=== PATIENT | female | born 1990 | race Hispanic/Latino ===

== ENCOUNTER 2017-09-05 06:23 | Inpatient (IN) | payer BC, OTHER ==
[~2017-09-05 06:23] MED LIST: OXYTOCIN/LR 20 UNIT/1,000 ML BAG IV ONE
[2017-09-05] MEDS ORDERED: Ringers Lactate 1,000 ML IV PRN (06:26)
[2017-09-05 06:38] VITALS: BMI 41.0
[2017-09-05] MEDS ORDERED: Ringers Lactate 1,000 ML IV SCH (07:00)
[2017-09-05] MEDS ORDERED: OXYTOCIN/LR 20 UNIT/1,000 ML BAG IV SCH (07:00)
[2017-09-05 07:13] LABS: Urine Appearance CLEAR; Urine Bilirubin NEGATIVE (NEG); Urine Blood NEGATIVE (NEG); Urine Color YELLOW; Urine Glucose NEGATIVE (NEG); Urine Microscopic Reflex NO UMIC; Urine Protein NEGATIVE (NEG); Urine Specific Gravity 1.025 (1.005-1.030)
[2017-09-05 07:13] LABS: RPR Titer ND
[2017-09-05] MEDS ORDERED: BUPIVACAINE 0.25% PF 10 ML VIAL IV PRN (07:13)
[2017-09-05] MEDS ORDERED: FENTANYL CITR 100 MCG/2 ML IV ONE (07:13)
[2017-09-05] MEDS ORDERED: FENTANYL/BUPIVACAINE/NS/PF 200 MCG/100 ML BAG EP PRN (07:13)
[2017-09-05 07:23] LABS: Absolute Lymphocytes (CBC) 1.9 K/uL (0.7-4.9); Absolute Monocytes 0.6 K/uL (0.1-1.3); Absolute Neutrophil 6.9 K/uL (1.8-8.0); Basophils % 0.4 % (0-1.3); Eosinophils % 1.8 % (0-4.4); Hematocrit 31.5 % (36.0-45.0); Lymphocytes % 19.9 % (15.3-44.8); MCH 20.2 pg (27.0-35.0); MCV 66.2 fL (80-100); MPV 8.9 fL (7.6-11.3); Monocytes % 5.8 % (3.3-12.3); RBC Red Blood Cell Count 4.75 M/uL (3.86-4.86)
[2017-09-05 10:08] LABS: Platelet Estimate ADEQ; Urine White Blood Cell Casts OK
[2017-09-05 10:09] LABS: Anisocytosis 1+; Blood Morphology Comment NOTED (NOT SEEN); Hypochromasia 1+; Poikilocytosis 1+
[2017-09-05] MEDS ORDERED: FENTANYL/BUPIVACAINE/NS/PF 200 MCG/100 ML BAG EP ONE (10:18)
[2017-09-05] MEDS ORDERED: LIDOCAINE 1% 20 ML MDV ONE (10:47)
[2017-09-05] MEDS ORDERED: LIDOCAINE 2% MPF 5 ML VIAL ONE (10:48)
[2017-09-05] MEDS ORDERED: LIDOCAINE 2% INJ, 20 mL 0 ML ONE (13:41)
[2017-09-05] MEDS ORDERED: METHYLERGONOVINE 0.2MG/ML AMP IM ONE (13:42)
[2017-09-05] MEDS ORDERED: CARBOPROST TROME 250 MCG/ML IM ONE (13:42)
[2017-09-05] MEDS ORDERED: BISACODYL 10 MG RECTAL SUPP RECT PRN (14:15)
[2017-09-05] MEDS ORDERED: Oxycodone HCl/Acetaminophen 1 TAB TAB PO PRN ×2 (14:15)
[2017-09-05] MEDS ORDERED: ACETAMINOPHEN 500 MG TAB PO PRN (14:15)
[2017-09-05] MEDS ORDERED: DOCUSATE NA/SENNA CONC 1 TAB PO PRN (14:15)
[2017-09-05] MEDS ORDERED: METHYLERGONOVINE 0.2 MG TAB PO PRN (14:15)
--- NOTE | 2017-09-05 15:04 | P.OP ---
Date of Service: 09/05/17 Findings and Operative Technique Patient delivered a viable male in cephalic presentation on 09/05/17 at 1404. was delivered with nuchal cord x1. This was manually reduced. Perineum was intact. Upon delivery of the infant the nose and mouth were suctioned with a suction bulb. Cord was clamped and cut. was placed on mother's abdomen for skin to skin bonding. Cord blood was obtained. Attention was then turned to the placenta which was delivered with gentle traction. Fundal massage was performed. Placenta intact. EBL was found to be 200cc. APGARS were 9/9. Weight was found to be 6lb 15 oz. First stage of labor was 4 hours 19 min. Second stage was 5 min. Both mom and baby are doing well.
[2017-09-05] MEDS: IBUPROFEN 200 MG TAB PO PRN (18:26)
[2017-09-05 23:01] LABS: RPR (Rapid Plasma Reagin) NON-REACT (NON-REACT)
--- NOTE | 2017-09-06 01:08 | HP ---
Date of Admission: 09/05/2017 History Of Present Illness: Radha is a 27-year-old, 7 xpov-0-0-3-3 who presents at 37 week s and 1 day gestation for induction of labor due to uteroplacental insufficiency and borderline oligo hydramnios. The patient has been seen by a Maternal Medicine specialist who recommended delive ry by 37 weeks. Amniotic fluid index was 7.4 cm, which was significantly decreased from prior 14 cm. She also had slightly elevated Doppler monitoring and a prior history of preeclampsia with dany rderline blood pressures and slight proteinuria; therefore, it was recommended that she be delivered by 37 weeks gestation. The patient reports good movements, but she states that they have been decreasing in the last week. She denies vaginal bleeding, reports irregular contractions. Denies le akage of fluid. record is present for review on the chart. This , she had an elev ated 1-hour glucose screen, 3-hour was negative. She has a prior history of 3 vaginal births. Past Medical History: Obesity and bipolar depression. Past Surgical History: D and C, eye surgery, and back surgery. Family History: Significant for insulin-dependent diabetes. Social History: Denies tobacco, alcohol, or drug use. She is with the father of the baby, unmarried . Physical Examination: Vital Signs: On admission, blood pressure was 135/58, pulse of 88, respirations 18, and temperature 97.4. General: The patient resting comfortably in bed, in no acute distress. Head and Neck: Normocephalic, atraumatic. Heart: Regular rate and rhythm. Respiratory: Symmetric nonlabored breathing. Abdomen: Gravid. Extremities: Bilateral lower extremities +1 edema bilaterally. Vaginal Exam: 2-3 cm dilated, 50% effaced, -2 station. Vertex presentation. Rupture of membranes p erformed, clear fluid noted. Laboratory On Admission: White blood cell count 9.6, hemoglobin 9.6, hematocrit 31.5, and platelet c ount 283. Protein negative. Impression: Radha is a 27-year-old, 7, htzc-6-8-3-3 who presents at 37 weeks and 1 day ges tation with uteroplacental insufficiency and borderline oligohydramnios, recommended to be delivered by 37 weeks by Maternal Medicine specialist. Rupture of membranes has been performed. She is GBS negative. We anticipate a vaginal . The patient will get an epidural at her request. Cont inuous maternal monitoring will be performed and Pitocin is being given for labor augmentation. HECTOR Voice ID: [id number]
[2017-09-06] MEDS: IBUPROFEN 200 MG TAB PO PRN ×2 (02:35→12:23)
[2017-09-06 05:19] LABS: Absolute Lymphocytes (CBC) 2.1 K/uL (0.7-4.9); Absolute Monocytes 0.8 K/uL (0.1-1.3); Absolute Neutrophil 7.6 K/uL (1.8-8.0); Basophils % 0.5 % (0-1.3); Eosinophils % 1.8 % (0-4.4); Hematocrit 24.1 % (36.0-45.0); Lymphocytes % 19.7 % (15.3-44.8); MCH 20.6 pg (27.0-35.0); MCV 65.4 fL (80-100); MPV 9.1 fL (7.6-11.3); Monocytes % 7.8 % (3.3-12.3); RBC Red Blood Cell Count 3.69 M/uL (3.86-4.86)
[2017-09-06] MEDS ORDERED: IBUPROFEN 200 MG TAB PO ONE (12:19)
[2017-09-06 12:28] VITALS: BP 135/65; TEMP 98.1
[2017-09-07 02:58] LABS: HBsAG Nonreactive (Nonreactive)
--- NOTE | 2017-09-12 22:22 | P.DS ---
Admission Date: 09/05/17 Discharge Date: 09/06/17 Disposition: ROUTINE DISCHARGE Discharge Condition: GOOD Brief History of Present Illness: Patient admitted for induction of labor due to uteroplacental insufficiency. Hospital Course: Patient did well during induction process and delivered vaginally. She is bonding well with the baby. Her pain is well controlled. Bleeding is normal. No issues voiding or ambulating. Vital Signs/Physical Exam: Temp Pulse Resp BP Pulse Ox 98.1 F 80 16 135/65 09/06/17 12:27 09/06/17 12:27 09/06/17 12:27 09/06/17 12:27 General: Alert, In no apparent distress HEENT: Atraumatic Neck: Supple Respiratory: Normal air movement Cardiovascular: No edema, Normal pulses Gastrointestinal: Soft and benign (fundus firm palpable beneath umbilicus) Musculoskeletal: No clubbing, No swelling Integumentary: No rashes Neurological: Normal gait, Normal speech External genitalia: No edema, No lesions Laboratory Data at Discharge: WBC 10.8 K/uL (4.3-10.9) 09/06/17 04:41 Hgb 7.6 g/dL (12.0-15.0) L* 09/06/17 04:41 Hct 24.1 % (36.0-45.0) L D 09/06/17 04:41 Plt Count 213 K/uL (152-406) D 09/06/17 04:41 Home Medications: Vit No.78/Iron/FA [Prenatabs FA Tablet] 1 tab PO DAILY 06/29/17 Followup: Juan David Hollingsworth DO [ACTIVE - CAN ADMIT] - (Follow up care with Dr. Hollingsworth in 6 weeks.)
== END 2017-09-06 16:32 | disposition home or self-care (01) | DRG 775 ==
LOC: 2ND-WC 06:23
PROVIDERS: ADMIT Student in an Organized Health Care Education/Training Program; ATTEND Student in an Organized Health Care Education/Training Program
PROC: 10E0XZZ Delivery of Products of Conception, External Approach (ICD-10-PCS; principal; 2017-09-05)
PROC: 10907ZC Drainage of Amniotic Fluid, Therapeutic from Products of Conception, Via Natural or Artificial Opening (ICD-10-PCS; 2017-09-05)
PROC: 3E033VJ Introduction of Other Hormone into Peripheral Vein, Percutaneous Approach (ICD-10-PCS; 2017-09-05)
DX: O41.03X0 Oligohydramnios, third trimester, not applicable or unspecified (principal); O36.5130 Maternal care for known or suspected placental insufficiency, third trimester, not applicable or unspecified; O99.214 Obesity complicating childbirth; O69.81X0 Labor and delivery complicated by cord around neck, without compression, not applicable or unspecified; Z3A.37 37 weeks gestation of pregnancy; Z37.0 Single live birth
CPT/HCPCS: 36415; 81003; 85025; 86592; 86901; 87340; 88305; 88307; J2210; J2590; J3010

== ENCOUNTER 2017-10-22 09:12 | Day surgery (SDC) | payer OTHER ==
[2017-10-22 10:12] LABS: Specific Gravity 1.025 (1.005-1.030)
[2017-10-22] MEDS ORDERED: Ringers Lactate 1,000 ML IV ONE (10:22)
[2017-10-22] MEDS ORDERED: SILVER NITRATE 1 APPL TOP ONE (10:28)
[2017-10-22] MEDS ORDERED: PROPOFOL 200 MG/20 ML VIAL IV ONE (10:31)
[2017-10-22] MEDS ORDERED: FENTANYL CITR 100 MCG/2 ML ONE ×2 (10:32→11:30)
[2017-10-22] MEDS ORDERED: MIDAZOLAM HCL 2 MG/2 ML INJ ONE (10:32)
[2017-10-22] MEDS ORDERED: GLYCOPYRROLATE 0.2 MG/ML SYR ONE (10:35)
[2017-10-22] MEDS ORDERED: ROCURONIUM 50 MG/5 ML VIAL IV ONE ×2 (10:35→10:37)
[2017-10-22] MEDS ORDERED: NEOSTIGMINE 1 MG/ML -5 ML SYRINGE ONE (10:36)
[2017-10-22] MEDS ORDERED: ONDANSETRON 4 MG (ODT) TAB PO PRN (11:44)
[2017-10-22] MEDS ORDERED: KETOROLAC 30 MG/ML INJ IV PRN (11:44)
[2017-10-22] MEDS ORDERED: IBUPROFEN 400 MG TAB PO PRN (11:44)
--- NOTE | 2017-10-22 11:44 | P.OP ---
Distribution Engineering Technologist: NONE,NONE Preoperative diagnosis: Multiparity desires permanent sterilization Postoperative diagnosis: same Primary procedure: Laparoscopic bilateral tubal ligation Secondary procedure: none Other procedure(s): none Anesthesia: General Estimated blood loss: none Specimen: none Operative Technique: After administration of general anesthesia, the patient was placed in the dorsal lithotomy position, and prepped and draped in the usual sterile fashion. The speculum was placed in the vagina, the cervix was grasped with the tenaculum , and a uterine manipulator inserted. This area was then draped off the remainder of the operative field. A 5-mm incision was made umbilically. A Veress needle was inserted to confirm an opening pressure of 4 mmHg. Approximately 4 liters of CO2 gas was insufflated into the abdominal cavity. The Veress needle was removed, and a long 5-mm port placed. Position was confirmed using a laparoscope. A second port was placed under direct visualization, 3 fingerbreadths suprapubically, 5 mm in diameter. This was done under direct visualization. The pelvic cavity was examined with the findings as noted above. The Klepinger was used to ligate segments of the fallopian tube bilaterally. Good segments were noted to be ligated. The accessory port was removed. The abdomen was deflated. The laparoscope and sheath was removed. The skin edges were approximated with 4-0 Monocryl suture in subcuticular fashion. Dermabond was applied. The instruments were removed from the vagina. The patient was returned to the supine position, recalled from anesthesia, and transferred to the recovery room in satisfactory condition. Sponge and needle counts correct at the conclusion of the case. Estimated blood loss was minimal. Complications: None Transferred to: Recovery Room Condition: Good
[2017-10-22] MEDS ORDERED: MEPERIDINE HCL 25 MG/0.5 ML ONE ×2 (11:57→12:04)
[2017-10-22] MEDS ORDERED: MEPERIDINE HCL 50 MG/ML AMP ONE (12:21)
[2017-10-22 12:51] VITALS: BP 128/72; TEMP 97; O2SAT 98
[2017-10-22] MEDS ORDERED: IBUPROFEN 400 MG TAB ONE (13:10)
== END 2017-10-22 14:10 | disposition home or self-care (01) ==
LOC: OR 09:12
PROVIDERS: ATTEND Student in an Organized Health Care Education/Training Program
PROC: 0U574ZZ Destruction of Bilateral Fallopian Tubes, Percutaneous Endoscopic Approach (ICD-10-PCS; principal; 2017-10-22 10:30)
DX: Z30.2 Encounter for sterilization (principal); Z64.1 Problems related to multiparity; Z82.49 Family history of ischemic heart disease and other diseases of the circulatory system; Z83.3 Family history of diabetes mellitus
CPT/HCPCS: 81025; J2175; J2250; J2710; J3010

== ENCOUNTER 2024-04-28 18:17 | Emergency (ER) | payer OTHER, SELFPAY ==
--- OUTSIDE RECORDS SUMMARY | 2024-04-28 18:20 | XMS REPORT | Continuity of Care Document ---
Author Name Unknown Address [address] [place] [address] [facility] thconnect Address [address] [place] [address] Care Team Providers Care Ventilation Mechanic Name Role Phone Pcp, Patient Does Not Have A Primary Care Physic edward JAYCEE CAMP Attending Clinician Unavailable JAYCEE CAMP Attending Clinician Unavailable Jaycee Camp MD Attending Clinician [phone] CORTES OROZCO Attending Clinician Unavailable TERRY NASH Attending Clinician Unavailable ADAN SIMMONS Attending Clinician Unavailable Adan Simmons DO Attending Clinician [phone] Doctor Unassigned, [place] Attending Clinician U THOM Green Attending Clinician Unavailable ADAN SIMMONS Admitting Clinician Unavailable Payers Payer Name Policy Type Policy Number Effective Date Expirati on Date Source [facility] [id number] 2022 00:00:00 MEDICAID PENDING PENDING 2019 00:00:00 Problems Condition Name Condition Details Condition Category Status Onset Date Resolution Date Last Treatment Date Treating Clinician Comments Source Obesity (BMI 30-39.9) Obesity (BMI 30-39.9) Disease Active 01-03 00:00: 00 [facility] Allergies, Adverse Reactions, Alerts Allergy Name Allergy Type Status Severity Reaction(s) Onset Date Inactive Date Treating Clinician Comments Source NO KNOWN ALLERGIE S Drug Class Active [facility] Social History Social Habit Start Date Stop Date Quantity Comments Source [facility] of [facility] function 2021-09-20 00:00:00 2021-09-20 00:00:00 [facility] Exposure to SARS-CoV-2 (event) 2021-09-09 00:00:00 2021-09-19 09:10:00 Not sure [facility] Tobacco use and exposure 2020-04-26 00:00:00 2020-04-26 00:00:00 Smokeless tobacco non-user [facility] Sex assigned at 1990 00:00:00 1990 00:00:00 [facility] Smoking Status Start Date Stop Date Source Never smoked tobacco [facility] Medications Ordered Medication Name Filled Medication Name Start Date Stop Date Current Medication? Ordering Clinician Indication Dosage Frequency Signature (SIG) Comments Components Source HYDROcodone -acetaminop hen 5-325 mg tablet 2023-05 00:00: 00 05-05 05:59 :00 Yes [id number] 1{tbl} Take 1-2 tablets by mouth every 6 (six) hours as needed for Pain (scale 4-6) for up to 7 days. Indication s: acute pain [facility] naproxen sodium (ANAPROX DS) 550 mg tablet 09-19 00:00: 00 Yes [id number] 550mg Take 1 tablet by mouth 2 (two) times daily with meals. [facility] methylPREDN ISolone (MEDROL, BOLIVAR,) 4 mg tablets 09-19 00:00: 00 Yes [id number] Take by mouth SEE-INSTRU CTIONS. follow package directions [facility] methocarbam oL 500 mg tablet 09-19 00:00: 00 09-25 04:59 :00 No [id number] 500mg Take 1 tablet by mouth 3 (three) times daily for 5 days. [facility] NAPROXEN ORAL 2019-05 14:19: 18 Yes Take by mouth. [facility] losartan 100 mg tablet 2019-05 00:00: 00 Yes 100mg Take 1 tablet by mouth daily. [facility] metoprolol succinate XL 25 mg 24 hr tablet 2019-05 00:00: 00 Yes [id number] 25mg Take 1 tablet by mouth daily. [facility] phenazopyri dine 200 mg tablet 9-16 00:00: 00 Yes [id number] 200mg Take 1 tablet by mouth 3 (three) times daily. [facility] traMADOL (ULTRAM) 50 mg tablet 11-17 00:00: 00 Yes 50mg Take 1 tablet by mouth every 6 (six) hours as needed for Pain (scale 4-6). [facility] cyclobenzap rine (FLEXERIL) 5 mg tablet 11-23 00:00: 00 Yes 5mg Take 1 tablet by mouth 3 (three) times daily. [facility] famotidine (PEPCID) 40 mg tablet 10-15 00:00: 00 Yes 40mg Take 1 tablet by mouth daily. [facility] Vital Signs Vital Name Observation Time Observation Value Comments S ource Systolic blood pressure 2024-04-28 01:45:00 158 mm[Hg] [facility] Diastolic blood pressure 2024-04-28 01:45:00 107 mm[Hg] [facility] Heart rate 2024-04-28 01:45:00 94 /min [facility] Respiratory rate 2024-04-28 01:45:00 16 /min [facility] Oxygen saturation in Arterial blood by Pulse oximetry 2024-04-28 01:45:00 96 /min [facility] Body temperature 2024-04-28 01:24:00 37.22 [place] [facility] Body height 2024-04-28 01:24:00 165.1 cm [facility] Body weight 2024-04-28 01:24:00 87.862 kg [facility] BMI 2024-04-28 01:24:00 32.23 kg/m2 [facility] Systolic blood pressure 2021-09-19 15:00:00 138 mm[Hg] [facility] Diastolic blood pressure 2021-09-19 15:00:00 90 mm[Hg] [facility] Heart rate 2021-09-19 15:00:00 64 /min [facility] Respiratory rate 2021-09-19 15:00:00 18 /min [facility] Oxygen saturation in Arterial blood by Pulse oximetry 2021-09-19 15:00:00 97 /min [facility] Body temperature 2021-09-19 14:12:00 36.5 [place] [facility] Body height 2021-09-19 14:12:00 165.1 cm [facility] Body weight 2021-09-19 14:12:00 95.255 kg [facility] BMI 2021-09-19 14:12:00 34.95 kg/m2 [facility] Procedures Procedure Date / Time Performed Performing Clinicia n Source XR CHEST 1 VW 2021-09-19 14:31:02 Singer Adan [facility] MAGNESIUM 2021-09-19 14:20:00 Singer [facility] TROPONIN I 2021-09-19 14:20:00 Singer [facility] COMP. METABOLIC PANEL (14990) 2021-09-19 14:20:00 Singer Adan [facility] CBC WITH DIFF 2021-09-19 14:20:00 Singer [facility] N-TERMINAL PRO-BNP 2021-09-19 14:20:00 Singer Adan [facility] NOTICE OF PRIVACY PRACTICES 2021-09-19 14:07:09 Doctor Unassigned, [place] [facility] CONSENT/REFUSAL FOR DIAGNOSIS AND TREATMENT 2021-09-19 14:04:33 Doctor Unassigned, [place] [facility] Encounters Start Date/Time End Date/Time Encounter Type Admission Type Attending Clinicians Care Facility Care Department Encounter ID Source 2024-01-04 20:41:41 Emergency HFD HFD [id number] [facility] Depart ent 2022-11-27 09:29:11 Outpatient [facility] [id number] [facility] 2024-04-27 19:29:00 2024-04-27 20:13:00 Emergency X PÉREZ JAYCEE SUMMERS [facility] ERT [id number] [facility] 2024-04-27 19:29:00 2024-04-27 20:13:00 Emergency Pérez Jaycee [facility] AT REPLACED BY [facility] [id number] [facility] 2023-12-10 17:14:27 2023-12-10 17:14:27 Outpatient SFA SFA [id number] Param Leary Pierce 2023-10-05 12:47:00 2023-10-05 15:56:00 Emergency E CORTES OROZCO [facility] [id number] [address] [place] [address] 2023-09-10 10:56:39 2023-09-10 10:56:39 Outpatient SFA SFA [id number] Param Leary Pierce 2023-08-21 13:39:19 2023-08-21 13:39:19 Outpatient SFA SFA [id number] Param Leary Pierce 2023-07-23 08:03:25 2023-07-23 08:03:25 Outpatient SFA SFA [id number] Param Leary Pierce 2023-07-11 15:34:57 2023-07-11 15:34:57 Outpatient SFA SFA [id number] Param Leary Pierce 2023-07-10 16:38:03 2023-07-10 16:38:03 Outpatient SFA SFA [id number] Param Leary Pierce 2023-07-03 08:24:12 2023-07-03 08:24:12 Outpatient SFA SFA [id number] Param Leary Pierce 2023-06-26 14:59:09 2023-06-26 14:59:09 Outpatient SFA SFA [id number] Param Leary Pierce 2023-06-11 08:28:06 2023-06-11 08:28:06 Outpatient SFA SFA [id number] Param Pelayo 2023-05-24 08:00:00 2023-05-24 08:00:00 Outpatient TERRY MAURICE [facility] [id number] [facility] 2023-05-10 15:07:11 2023-05-10 15:07:11 Outpatient SFA SFA [id number] Param Pelayo 2023-04-27 15:06:27 2023-04-27 15:06:27 Outpatient SFA SFA [id number] Param Pelayo 2023-04-04 08:41:32 2023-04-04 08:41:32 Outpatient SFA SFA [id number] Param Pelayo 2023-03-01 17:03:31 2023-03-01 17:03:31 Outpatient SFA SFA [id number] Param Pelayo 2023-02-19 15:40:18 2023-02-19 15:40:18 Outpatient SFA SFA [id number] Param Pelayo 2023-02-13 10:07:24 2023-02-13 10:07:24 Outpatient SFA SFA [id number] Param Pelayo 2023-02-05 14:22:43 2023-02-05 14:22:43 Outpatient SFA SFA [id number] Param Pelayo 2023-01-12 10:39:09 2023-01-12 10:39:09 Outpatient SFA SFA [id number] Param Pelayo 2023-01-04 16:27:56 2023-01-04 16:27:56 Outpatient SFA SFA [id number] Param Pelayo 2022-12-29 13:14:14 2022-12-29 13:14:14 Outpatient SFA SFA [id number] Param Pelayo 2022-12-07 16:27:59 2022-12-07 16:27:59 Outpatient SFA SFA [id number] Param Pelayo 2022-12-05 09:43:47 2022-12-05 09:43:47 Outpatient SFA SFA [id number] Param Pelayo 2022-10-12 16:47:27 2022-10-12 16:47:27 Outpatient [facility] [id number] Param Pelayo 2022-04-24 14:23:45 2022-04-24 14:23:45 Outpatient [facility] [id number] Param Pelayo 2022-04-21 14:19:49 2022-04-21 14:19:49 Outpatient [facility] [id number] Param Pelayo 2021-09-19 09:13:00 2021-09-19 10:16:00 Emergency X SINGER ADAN [facility] ERT [id number] [facility] 2021-09-19 09:13:00 2021-09-19 10:16:00 Emergency Adan Simmons [facility] [id number] [facility] 2021-09-19 00:00:00 2021-09-19 00:00:00 Orders Only Doctor Unassigned, [place] [facility] [id number] [facility] 2020-04-26 14:20:00 2020-04-26 14:20:00 Outpatient THOM MAIN [facility] [id number] [facility] 2020-03-29 17:21:00 2020-03-29 17:21:00 Emergency X [facility] ERT [id number] [facility] 2010-01-19 00:00:00 2010-01-19 09:28:07 Outpatient [facility] [id number] [facility] Results Test Description Test Time Test Comments Results Result Co mments Source [id number] 14:52:13* Test Item Value Reference Range Interpretation Comme nts NT-proBNP (test code = 9514020461) 65 pg/mL See_Comment [Automated message] The system which generated this result transmitted reference range: <=125. The reference range was not used to interpret this result as normal/abnormal. MARILYN (test code = MARILYN) Biotin has been reported to cause a negative bias, interpret results relative to patient's use of biotin. Lab Interpretation (test code = 71565-4) [facility] 14[facility]44:10* Test Item Value Reference Range Interpretation Comme nts MAGNESIUM (test code = 0659487862) 1.6 mg/dL 1.7-2.4 L Lab Interpretation (test cod e = 22103-7) [facility]normal [facility] (03711)2021-09-19 14:43:50* Test Item Value Reference Range Interpretation Comme nts NA (test code = 6822530353) 138 mmol/L 135-145 K (test code = 1362463173) 3.6 mmol/L 3.5-5.0 CL (test code = 9877645709) 102 mmol/L 98-108 CO2 TOTAL (test code = 6859373833) 24 mmol/L 23-31 AGAP (test code = 6166971636) 2-16 BUN (test code = 3096711896) 12 mg/dL 7-23 GLUCOSE (test code = 4039615228) 96 mg/dL 70-110 CREATININE (test code = 9412700571) 0.80 mg/dL 0.50-1.04 TOTAL BILI (test code = 2991810714) 0.7 mg/dL 0.1-1.1 CALCIUM (test code = 4432327650) 9.1 mg/dL 8.6-10.6 T PROTEIN (test code = 4963279516) 8.3 g/dL 6.3-8.2 H ALBUMIN (test code = 0997796916) 4.7 g/dL 3.5-5.0 ALK PHOS (test code = 7623562605) 64 U/L 34-122 ALTv (test code = 1742-6) 20 U/L 5-35 AST(SGOT) (test code = 2502488751) 26 U/L 13-40 eGFR (test code = 7163237344) mL/min/1.73m2 MARILYN (test code = MARILYN) Association of Glomerular Filtration Rate (GFR) and Staging of Kidney Disease* + --+ --+ ------+| GFR (mL/min/1.73 m2) ?| With Kidney Damage ?| ?Without Kidney Damage+ --------+ --------+ +| ?>90 ?| ?Stage one ?| ? Normal ?+ ---+ ---+ -------+| ?60-89 ?| ?Stage two ?| ? Decreased GFR ? + --+ --+ ------+| ?30-59 ?| ?Stage three ?| ? Stage three ? + --+ --+ ------+| ?15-29 ?| ?Stage four ? | ? Stage four ?+ ---+ ---+ -------+| ?<15 (or dialysis) ? ?| ?Stage five ? | ? Stage five ?+ ---+ ---+ -------+ *Each stage assumes the associated GFR level has been in effect for at least three months. ?Stages 1 to 5, with or without kidney disease, indicate chronic kidney disease. Notes: Determination of stages one and two (with eGFR >59mL/min/1.73 m2) requires estimation of kidney damage for at least three months as defined by structural or functional abnormalities of the kidney, manifested by either:Pathological abnormalities or Markers of kidney damage (including abnormalities in the composition of the blood or urine or abnormalities in imaging tests). Lab Interpretation (test code = 98542-3) Abnormal [facility] WITH [id number] 14:32:10* Test Item Value Reference Range Interpretation Comme nts WBC (test code = 6690-2) See_Comment [Holidu] The system which generated this result transmitted reference range: 4.30 - 11.10 10*3/?L. The reference range was not used to interpret this result as normal/abnormal. RBC (test code = 789-8) See_Comment [Automated MessageGears] The system which generated this result transmitted reference range: 3.93 - 5.25 10*6/?L. The reference range was not used to interpret this result as normal/abnormal. HGB (test code = 718-7) 11.8 g/dL 11.6-15.0 HCT (test code = 4544-3) 37.5 % 35.7-45.2 MCV (test code = 787-2) 76.1 fL 80.6-95.5 L MCH (test code = 785-6) 23.9 pg 25.9-32.8 L MCHC (test code = 786-4) 31.5 g/dL 31.6-35.1 L RDW-SD (test code = 76014-7) 43.1 fL 39.0-49.9 RDW-CV (test code = 788-0) 15.7 % 12.0-15.5 H PLT (test code = 777-3) See_Comment [Automated messa ge] The system which generated this result transmitted reference range: 166 - 358 10*3/?L. The reference range was not used to interpret this result as normal/abnormal. MPV (test code = 69786-3) 10.0 fL 9.5-12.9 NRBC/100 WBC (test code = 7943826779) See_Comment [Automated [employer] ssage] The system which generated this result transmitted reference range: 0.0 - 10.0 /100 WBCs. The reference range was not used to interpret this result as normal/abnormal. NRBC x10^3 (test code = 3472188736) <0.01 See_Comment [Automated messa ge] The system which generated this result transmitted reference range: 10*3/?L. The reference range was not used to interpret this result as normal/abnormal. GRAN MAT (NEUT) % (test code = 770-8) 62.9 % IMM GRAN % (test code = 0573111517) 0.30 % LYMPH % (test code = 736-9) 26.3 % MONO % (test code = 5905-5) 7.1 % EOS % (test code = 713-8) 2.7 % BASO % (test code = 706-2) 0.7 % GRAN MAT x10^3(ANC) (test code = 3388618418) 4.46 10*3/uL 1.88-7.09 IMM GRAN x10^3 (test code = 3661155026) <0.03 0.00-0.06 LYMPH x10^3 (test code = 731-0) 1.86 10*3/uL 1.32-3.29 MONO x10^3 (test code = 742-7) 0.50 10*3/uL 0.33-0.92 EOS x10^3 (test code = 711-2) 0.19 10*3/uL 0.03-0.39 BASO x10^3 (test code = 704-7) 0.05 10*3/uL 0.01-0.07 Lab Interpretation (test code = 81184-6) [facility]normal [facility]-PCR/[id number] 08:22:09* Test Item Value Reference Range Interpretation Comments SARS-CoV-2 INTERPRETATION (test code = 55252) NEGATIVE SEE NOTE SARS-CoV-2 R NA NOT DETECTEDNegative results do not preclude SARS-CoV-2 infection and should notbe used as the sole basis for patient management decisions. Negativeresults must be combined with clinical observations, patient history,and epidemiological information. Optimum specimen types and timingfor peak viral levels during infections caused by SARS-CoV-2 have notbeen determined. Collection of multiple specimens or types ofspecimens may be necessary to detect virus. Improper specimencollection and handling, sequence variability under primers/probes,or organism present below the limit of detection may lead to falsenegative results. Positive and negative predictive values oftesting are highly dependent on prevalence. False negative testresults are more likely when prevalence is high. SOURCE (test code = 15331) NOT SPECIFIED Note: Methodolog y is Asmita Javier Real-Time RT-PCR. The expected result or reference range is NEGATIVE (Not Detected). For more information regarding COVID-19 testing to include clinicalinformation, methodology detail, intended use, FDA authorization andrecommended fact sheets for patients or healthcare providers, see [employer] Announcement: SARS-CoV-2 (COVID-19) by NAAT at URL below (note,fact sheets are provided by method given in report:[email or web address] Alternatively, see downloadable PDF fact sheet at:[email or web address]-[email or web address]-PCR UNLESS OTHERWISE INDICATED, ALL TESTING PERFORMED [facility] [employer] [address] [place] [address] SHIPPING ROOM SUPERVISOR: CHARLIE GARCIA M.D. CLIA NUMBER [id number] [facility] [place]. [id number]"
--- NOTE | 2024-04-28 19:27 | ER ---
Nurse's Notes [facility] Name: Radha Boogie Age: 34 yrs Sex: Female : 1990 Arrival Date: 04/28/2024 Time: 18:17 Bed DX1 Private MD: Diagnosis: Sciatica, right side Presentation: 04/28 18:30 Chief complaint: Right low back and buttock pain that radiates to right leg x 1 week. hb Coronavirus screen: At this time, the client does not indicate any symptoms associated with coronavirus-19. Ebola Screen: No symptoms or risks identified at this time. Initial Sepsis Screen: Does the patient meet any 2 criteria? No. Patient's initial sepsis screen is negative. Does the patient have a suspected source of infection? No. Patient's initial sepsis screen is negative. Risk Assessment: Do you want to hurt yourself or someone else? Patient reports no desire to harm self or others. Onset of symptoms was April 21, 2024. 18:30 Method Of Arrival: Wheelchair 18:30 Acuity: JOSE RAUL 4 hb Triage Assessment: 19:56 General: Appears in no apparent distress. uncomfortable, Behavior is calm, cooperative. cm10 Pain: Complains of pain in right gluteus kojo and right lower back. Neuro: No deficits noted. Level of Consciousness is awake, alert, obeys commands, Oriented to person, place, time, situation, Appropriate for age. Respiratory: No deficits noted. Airway is patent Respiratory effort is even, unlabored, Respiratory pattern is regular, symmetrical. Musculoskeletal: Reports pain in buttocks and right gluteus kojo and right lower back. 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 - Infectious Disease History:: Denies. - Social history:: Smoking status: Patient denies any tobacco usage or history of. Screenin:57 [facility] ED Fall Risk Assessment (Adult) History of falling in the last 3 months, cm10 including since admission No falls in past 3 months (0 pts) Confusion or Disorientation No (0 pts) Intoxicated or Sedated No (0 pts) Impaired Gait Yes (1 pt) Mobility Assist Device Used Yes (1 pt) Altered Elimination No (0 pt) Score/Fall Risk Level 0 - 2 = Low Risk Oriented to surroundings, Maintained a safe environment, Hourly rounding (assess needs \T\ fall precautionary measures) done. Abuse screen: Denies threats or abuse. Denies injuries from another. Nutritional screening: No deficits noted. Tuberculosis screening: No symptoms or risk factors identified. Vital Signs: 18:30 BP 148 / 88; Pulse 89; Resp 16; Temp 97; Pulse Ox 100% on R/A; Pain 10/10; cm10 18:30 Pain Scale: Adult cm10 ED Course: 18:20 Patient arrived in ED. mr 18:20 Radha Romero FNP-C [facility]. kb 18:20 Jt Clemens MD is Attending Physician. kb 18:33 Triage completed. hb 18:34 Arm band placed on. hb 19:57 Patient has correct armband on for positive identification. Provided Education on: cm10 Follow-up instructions. 19:57 No provider procedures requiring assistance completed. Patient did not have IV access cm10 during this emergency room visit. Administered Medications: 19:56 Drug: Diazepam PO 5 mg PO once Route: PO; cm10 20:05 Follow up: Response: No adverse reaction cm10 19:56 Drug: Ketorolac IM 30 mg IM once Route: IM; Site: right deltoid; cm10 20:05 Follow up: Response: No adverse reaction cm10 19:56 Drug: Lidoderm Topical Patch 5 % (700 mg/patch) 1 patches Topical once; leave on for 12 cm10 hours; cover most painful area; may cut into smaller pieces Route: Topical; Site: affected area; Medication: 19:57 VIS not applicable for this client. cm10 Outcome: 19:26 Discharge ordered by . kb 19:57 Discharged to home via wheelchair, with family, cm10 19:57 Condition: good 19:57 Discharge instructions given to patient, Instructed on discharge instructions, follow up and referral plans. Demonstrated understanding of instructions, follow-up care, 20:05 Patient left the ED. cm10 Signatures: Radha Romero FNP-C FNP-Sully Ferreira, Reg Reg mr Cheri Rodriguez, ANITA RN hb Orlando, Yi, RN RN cm10 Corrections: (The following items were deleted from the chart) 19:56 18:30 BP 048 / 88; Pulse 89bpm; Resp 16bpm; Pulse Ox 100% RA; Temp 97F; Pain 10, cm10 Adult; hb
--- NOTE | 2024-04-28 19:27 | EDPHYS ---
Physician Documentation [facility] Name: Radha Boogie Age: 34 yrs Sex: Female : 1990 Arrival Date: 04/28/2024 Time: 18:17 Bed DX1 Private MD: ED Physician Jt Clemens HPI: 04/28 18:45 This 34 yrs old Female presents to ER via Wheelchair with complaints of Leg kb Pain, Leg numbness. 18:45 Pt is a 34 year old female who presents for right lower back/upper buttock pain with kb numbness and tingling to right leg that began 1.5 weeks ago. Denies injury or trauma. States she has taken a course of steroid, last one taken yesterday without relief. was seen at [place] [facility] yesterday and given a prescription for hydrocodone which hasn't helped either. STates she was taking antiinflammatories and muscle relaxers as well, but hasn't today since she had the hydrocodone to take. . 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 - Infectious Disease History:: Denies. - Social history:: Smoking status: Patient denies any tobacco usage or history of. ROS: 18:40 Constitutional: As per HPI kb Exam: 18:40 Constitutional: This is a well developed, well nourished patient who is awake, alert, kb and in no acute distress. Head/Face: Normocephalic, atraumatic. ENT: Moist Mucous membranes Cardiovascular: Regular rate Respiratory: Respirations even and unlabored. No increased work of breathing. Talking in full sentences Back: No spinal tenderness. No costovertebral tenderness. Full range of motion. Skin: Warm, dry with normal turgor. Normal color. Neuro: Awake and alert, GCS 15, oriented to person, place, time, and situation. 18:40 Musculoskeletal/extremity: Extremities: grossly normal except: noted in the right lower back and right gluteus kojo: pain, tenderness, ROM: intact in all extremities, Circulation is intact in all extremities. Sensation intact. Vital Signs: 18:30 BP 148 / 88; Pulse 89; Resp 16; Temp 97; Pulse Ox 100% on R/A; Pain 10/10; cm10 18:30 Pain Scale: Adult cm10 MDM: 18:20 Medical Screening Exam initiated kb 18:41 Data reviewed: vital signs, nurses notes. kb 18:43 Differential diagnosis: tendonitis, sciatica, strain. Test considered but Not kb performed: X-ray: pelvis xray considered but pt has no bony tenderness, no reported injury. Counseling: I had a detailed discussion with the patient and/or guardian regarding the historical points, exam findings, and any diagnostic results supporting the discharge/admit diagnosis, the need for outpatient follow up, a family practitioner, to return to the emergency department if symptoms worsen or persist or if there are any questions or concerns that arise at home. Administered Medications: 19:56 Drug: Diazepam PO 5 mg PO once Route: PO; cm10 20:05 Follow up: Response: No adverse reaction cm10 19:56 Drug: Ketorolac IM 30 mg IM once Route: IM; Site: right deltoid; cm10 20:05 Follow up: Response: No adverse reaction cm10 19:56 Drug: Lidoderm Topical Patch 5 % (700 mg/patch) 1 patches Topical once; leave on for 12 cm10 hours; cover most painful area; may cut into smaller pieces Route: Topical; Site: affected area; Disposition Summary: 04/28/24 19:26 Discharge Ordered Notes: Location: Home kb Condition: Stable kb Diagnosis - Sciatica, right side kb Followup: kb - With: Emergency Department - When: As needed - Reason: Worsening of condition Followup: kb - With: Private Physician - When: 2 - 3 days - Reason: Recheck today's complaints, Continuance of care, Re-evaluation by your physician Discharge Instructions: - Discharge Summary Sheet kb - Sciatica, [id number] kb - Back Exercises, [id number] kb Forms: - Medication Reconciliation Form kb - Antibiotic Education kb - Prescription Opioid Use kb - Patient Portal Instructions kb - Leadership Thank You Letter kb Addendum: 05/05/2024 07:06 Co-signature as Attending Physician, Jt Clemens MD I reviewed the patient's care r n provided by the Advanced Practice Provider and agree with the diagnosis and treatment plan. Signatures: Radha Romero FNP-C FURNACE FEEDER-CkJt Wylie MD MD rn Baxter, Heather, RN RN Yi Morales RN RN cm10
[2024-04-28] MEDS ORDERED: KETOROLAC 30 MG/ML INJ ONE (19:46)
[2024-04-28] MEDS ORDERED: LIDOCAINE 4% PATCH ONE (19:46)
[2024-04-28] MEDS ORDERED: DIAZEPAM 5 MG TABLET ONE (19:46)
[2024-04-29 01:37] VITALS: BP 148/88; TEMP 97; O2SAT 100
== END 2024-04-28 20:05 | disposition home or self-care (01) ==
LOC: ER 18:17
DX: M54.31 Sciatica, right side (principal)
CPT/HCPCS: 96372; 99284; J2003

== ENCOUNTER 2024-08-11 13:01 | Emergency (ER) | payer SELFPAY ==
--- OUTSIDE RECORDS SUMMARY | 2024-08-11 13:06 | XMS REPORT | Continuity of Care Document ---
Author Name Unknown Address [address] [facility] [address] [place] [address] [facility] Address [address] [facility] [address] [place] [address] Care Team Providers Care Vice President Marketing & Development Name Role Phone Pcp, Patient Does Not Have A Primary Care Physic edward Campaigns, Generic Provider Attending Clinician Unavailable JAYCEE ORTEZ Attending Clinician Unavailable JAYCEE ORTEZ Attending Clinician Unavailable Jaycee Ortez MD Attending Clinician [phone] CORTES OROZCO Attending Clinician Unavailable TERRY NASH Attending Clinician Unavailable ADAN SIMMONS Attending Clinician Unavailable Adan Simmons DO Attending Clinician [phone] Doctor Unassigned, Gaffney Attending Clinician THOM Claudio Attending Clinician Unavailable ADAN SIMMONS Admitting Clinician Unavailable Payers Payer Name Policy Type Policy Number Effective Date Expirati on Date Source MEDICAID PENDING PENDING 2019 00:00:00 Problems Condition Name Condition Details Condition Category Status Onset Date Resolution Date Last Treatment Date Treating Clinician Comments Source Obesity (BMI 30-39.9) Obesity (BMI 30-39.9) Disease Active 01-03 00:00: 00 [facility] Allergies, Adverse Reactions, Alerts Allergy Name Allergy Type Status Severity Reaction(s) Onset Date Inactive Date Treating Clinician Comments Source NO KNOWN ALLERGIE S Drug Class Active [facility] Social History Social Habit Start Date Stop Date Quantity Comments Source Sexual orientation U [facility] History of Social function 2021-09-20 00:00:00 2021-09-20 00:00:00 [facility] Exposure to SARS-CoV-2 (event) 2021-09-09 00:00:00 2021-09-19 09:10:00 Not sure [facility] Tobacco use and exposure 2020-04-26 00:00:00 2020-04-26 00:00:00 Smokeless tobacco non-user [facility] Sex assigned at 1990 00:00:00 1990 00:00:00 [facility] Smoking Status Start Date Stop Date Source Never smoked tobacco [facility] Medications Ordered Medication Name Filled Medication Name Start Date Stop Date Current Medication? Ordering Clinician Indication Dosage Frequency Signature (SIG) Comments Components Source telmisartan 40 mg tablet 07-16 00:00: 00 Yes 1mg Param Pelayo metronidazo le 500 mg tablet 07-16 00:00: 00 Yes 1mg Param Pelayo quetiapine 100 mg tablet 07-16 00:00: 00 Yes 15mg Param Pelayo HYDROcodone -acetaminop hen 5-325 mg tablet 2023-05 00:00: 00 05-05 05:59 :00 No [id number] 1{tbl} Take 1-2 tablets by mouth every 6 (six) hours as needed for Pain (scale 4-6) for up to 7 days. Indication s: acute pain [facility] prednisone 20 mg tablet 2023-05 00:00: 00 Yes mg Param Pelayo telmisartan 40 mg tablet 2023-05- 00:00: 00 Yes 1mg Param Pelayo methocarbam ol 500 mg tablet 2023-05- 00:00: 00 Yes 1mg Param Pelayo ibuprofen 800 mg tablet 2023-05- 00:00: 00 Yes 1mg Param Pelayo telmisartan 40 mg tablet - 00:00: 00 Yes 1mg Param Pelayo quetiapine 100 mg tablet 09-09 00:00: 00 Yes 1mg Param Pelayo fluoxetine 40 mg capsule 09-09 00:00: 00 Yes 1mg Param Pelayo NEOMYCIN-PO LYMYXIN-HC EAR SUSP 08-21 00:00: 00 Yes Param Pelayo amoxicillin 875 mg-potassiu vianca clavulanate 125 mg tablet 08-20 00:00: 00 Yes 1mg Param Pelayo fluticasone propionate 50 mcg/actuati on nasal spray,suspe nsion 08-20 00:00: 00 Yes 1mcg/ac tuation Param Pelayo quetiapine 100 mg tablet 08-09 00:00: 00 Yes 1mg Param Pelayo fluoxetine 40 mg capsule 08-09 00:00: 00 Yes 1mg Param Pelayo TAKE 1 TABLET AT BEDTIME. 2-20 00:00: 00 09-11 00:00 :00 No 100 Param Pelayo TAKE 1 CAPSULE BY MOUTH ONCE DAILY -20 00:00: 00 09-11 00:00 :00 No 40 Param Pelayo DOXYCYCLINE MONO 100 MG 2-15 00:00: 00 Yes Param Pelayo TAKE 1 TABLET TWICE DAILY. 2-15 00:00: 00 09-11 00:00 :00 No 100 Param Pelayo INJECT 3 MG SQ QD 2-13 00:00: 00 Yes 183 Param Pelayo 1 TAB PO BID X 7 DAYS ADVISE NO ALCOHOL 2-13 00:00: 00 09-11 00:00 :00 No 500 Param Pelayo QUETIAPINE FUMARATE 100 MG 2-06 00:00: 00 Yes Param Pelayo TAKE 1 TABLET AT BEDTIME. 2-06 00:00: 00 09-11 00:00 :00 No 100 Param Pelayo TAKE 1 CAPSULE BY MOUTH ONCE DAILY 2-06 00:00: 00 09-11 00:00 :00 No 40 Param Pelayo TAKE 1 CAPSULE BY MOUTH ONCE DAILY 1-09 00:00: 00 09-11 00:00 :00 No 40 Param Gibran Pelayo QUETIAPINE FUMARATE 50 MG 1-09 00:00: 00 09-11 00:00 :00 No Param Gibran Pelayo INJECT 0.6 MG SUBCUTANEOU SLY DAILY FOR 1 WEEK, INCREASE TO 1.2 MG DAILY ON WEEK TWO, INCREASE TO 1.8 MG DAILY ON WEEK THREE, INCREASE TO 2.4 MG DAILY ON WEEK FOUR, AND INCREASE TO 3 MG DAILY ON WEEK FIVE 2022-05 00:00: 00 09-11 00:00 :00 No 183 Param Pelayo 1 po qd 2022-05 00:00: 00 Yes 10 Param Pelayo TAKE 1 TAB PO QD X 2 WEEKS THEN 2 TABS PO QD FOR BLOOD PRESSURE 2022-05 00:00: 00 09-11 00:00 :00 No 20 Param Pelayo INJECT 0.25 SQ QWKLY X 4 WEEKS THEN 0.05 SQ QWKLY X 2 2022-05 00:00: 00 09-11 00:00 :00 No 23 Param Pelayo TAKE 2 TABLETS 3 TIMES DAILY 2022-05 2 00:00: 00 09-11 00:00 :00 No 750 Param Pelayo TAKE 1 TABLET EVERY 6 TO 8 HOURS NEEDED. 2022-05 2- 00:00: 00 09-11 00:00 :00 No 600 Param Pelayo TAKE 1 CAPSULE BY MOUTH ONCE DAILY 2022-05 1-15 00:00: 00 09-11 00:00 :00 No 40 Param Gibran Pelayo TAKE 1 TABLET AT BEDTIME. 2022-05 1-15 00:00: 00 09-11 00:00 :00 No 50 Param F Pierce TAKE 1 TABLET AT BEDTIME. 2022-05 0-12 00:00: 00 09-11 00:00 :00 No 50 Param F Pierce TAKE 1 CAPSULE BY MOUTH ONCE DAILY 2022-05 0-12 00:00: 00 09-11 00:00 :00 No 40 Param F Pierce TAKE 1 CAPSULE BY MOUTH ONCE DAILY 9- 00:00: 00 09-11 00:00 :00 No 40 Param F Pierce TAKE 1 TABLET AT BEDTIME. 9-26 00:00: 00 09-11 00:00 :00 No 50 Param Pelayo TAKE 1 TABLET BY MOUTH DAILY FOR BLOOD PRESSURE. 9-20 00:00: 00 09-11 00:00 :00 No 10 Param Pelayo TAKE 2 TABLETS 3 TIMES DAILY 8-25 00:00: 00 09-11 00:00 :00 No 750 Param Pelayo TAKE 1 TABLET EVERY 6 TO 8 HOURS NEEDED. 8- 00:00: 00 09-11 00:00 :00 No 600 Param Pelayo TAKE 1 TABLET AT BEDTIME. 8- 00:00: 00 09-11 00:00 :00 No 50 Param Pelayo QUETIAPINE FUMARATE 50 MG 8- 00:00: 00 09-11 00:00 :00 No Param Pelayo TAKE 1 CAPSULE DAILY IN THE MORNING. 8- 00:00: 00 09-11 00:00 :00 No 20 Param Pelayo 1 po bid 7-20 00:00: 00 09-11 00:00 :00 No 50 Param Pelayo 1 po qd 7-20 00:00: 00 09-11 00:00 :00 No 5 Param Pelayo TAKE 1 TABLET DAILY FOR BLOOD PRESSURE. 7-20 00:00: 00 09-11 00:00 :00 No 10 Param Pelayo TAKE 1 CAPSULE DAILY IN THE MORNING. 7-18 00:00: 00 09-11 00:00 :00 No 20 Param Pelayo TAKE 1 TABLET AT BEDTIME. 7-18 00:00: 00 09-11 00:00 :00 No 25 Param Pelayo TAKE 1 CAPSULE DAILY IN THE MORNING. 6-06 00:00: 00 09-11 00:00 :00 No 20 Param Pelayo TAKE 1 TABLET AT BEDTIME. 6-06 00:00: 00 09-11 00:00 :00 No 25 Param Pelayo TAKE 1 TABLET BY MOUTH EVERY 6 HOURS 10-04 00:00: 00 09-11 00:00 :00 No Param Pelayo TAKE 1 CAPSULE BY MOUTH EVERY 12 HOURS FOR DENTAL INFECTION 10-04 00:00: 00 09-11 00:00 :00 No Param Pelayo INSTILL 4 DROPS IN THE AFFECTED EAR(S) TWICE DAILY 07-19 00:00: 00 09-11 00:00 :00 No 301 Param Pelayo TAKE 1 TABLET DAILY. 2021-05- 00:00: 00 09-11 00:00 :00 No 5 Param Pelayo naproxen sodium (ANAPROX DS) 550 mg tablet 09-19 00:00: 00 Yes [id number] 550mg Take 1 tablet by mouth 2 (two) times daily with meals. [facility] methylPREDN ISolone (MEDROL, BOLIVAR,) 4 mg tablets 09-19 00:00: 00 Yes [id number] Take by mouth SEE-INSTRU CTIONS. follow package directions [facility] TAKE 1 TABLET BY MOUTH THREE TIMES DAILY FOR 5 DAYS 09-19 00:00: 00 09-11 00:00 :00 No Param Pelayo TAKE BY MOUTH DIRECTED ON INSIDE OF PACKAGE 09-19 00:00: 00 09-11 00:00 :00 Jacquelyn Pelayo TAKE 1 TABLET BY MOUTH TWICE DAILY WITH MEALS 09-19 00:00: 00 09-11 00:00 :00 No Param Pelayo methocarbam oL 500 mg tablet 09-19 00:00: 00 09-25 04:59 :00 No [id number] 500mg Take 1 tablet by mouth 3 (three) times daily for 5 days. [facility] fluoxetine 20 mg tablet 09-12 00:00: 00 Yes 1mg Param Pelayo trazodone 100 mg tablet 09-12 00:00: 00 Yes 15mg Param Pelayo TAKE 1 CAPSULE BY MOUTH THREE TIMES DAILY 09-12 00:00: 00 09-11 00:00 :00 No Param Pelayo fluoxetine 10 mg tablet 09-01 00:00: 00 Yes 1mg Param Pelayo trazodone 100 mg tablet 09-01 00:00: 00 Yes 51mg Param Pelayo Dose Unknown 09-01 00:00: 00 Yes Param Pelayo Dose Unknown 09-01 00:00: 00 Yes Param Pelayo Dose Unknown 09-01 00:00: 00 Yes Param Pelayo Dose Unknown 09-01 00:00: 00 Yes Param Pelayo Dose Unknown 09-01 00:00: 00 Yes Param Pelayo Dose Unknown 09-01 00:00: 00 Yes Param Pelayo amoxicillin 500 mg tablet 06-10 00:00: 00 Yes 1mg Param Pelayo ProAir HFA 90 mcg/actuati on aerosol inhaler 05-23 00:00: 00 Yes 12mcg/a ctuatio n Param Pelayo fluoxetine 10 mg tablet 06-21 00:00: 00 Yes 1mg Param Pelayo trazodone 50 mg tablet 06-21 00:00: 00 Yes 1mg Param Pelayo ProAir HFA 90 mcg/actuati on aerosol inhaler 2019-05 00:00: 00 Yes 12mcg/a ctuatio n Param Pelayo azithromyci n 250 mg tablet 2019-05 00:00: 00 Yes mg Param Pelayo metoprolol succinate ER 25 mg tablet,exte nded release 24 hr 2019-05 00:00: 00 Yes 1mg Param Pelayo losartan 100 mg tablet 2019-05 00:00: 00 Yes 1mg Param Pelayo NAPROXEN ORAL 2019-05 14:19: 18 Yes Take by mouth. [facility] losartan 100 mg tablet 2019-05 00:00: 00 Yes 100mg Take 1 tablet by mouth daily. [facility] metoprolol succinate XL 25 mg 24 hr tablet 2019-05 00:00: 00 Yes [id number] 25mg Take 1 tablet by mouth daily. [facility] losartan 50 mg tablet 2019-05 00:00: 00 Yes 1mg Param Pelayo losartan 25 mg tablet 2019-05 00:00: 00 Yes 1mg Param Pelayo phenazopyri dine 200 mg tablet 16 00:00: 00 Yes [id number] 200mg Take 1 tablet by mouth 3 (three) times daily. [facility] traMADOL (ULTRAM) 50 mg tablet 11-17 00:00: 00 Yes 50mg Take 1 tablet by mouth every 6 (six) hours as needed for Pain (scale 4-6). [facility] cyclobenzap rine (FLEXERIL) 5 mg tablet 11-23 00:00: 00 Yes 5mg Take 1 tablet by mouth 3 (three) times daily. [facility] famotidine (PEPCID) 40 mg tablet 10-15 00:00: 00 Yes 40mg Take 1 tablet by mouth daily. [facility] Vital Signs Vital Name Observation Time Observation Value Comments S abdiyevgeniy Systolic blood pressure 2024-04-28 01:45:00 158 mm[Hg] [facility] Diastolic blood pressure 2024-04-28 01:45:00 107 mm[Hg] [facility] Heart rate 2024-04-28 01:45:00 94 /min [facility] Respiratory rate 2024-04-28 01:45:00 16 /min [facility] Oxygen saturation in Arterial blood by Pulse oximetry 2024-04-28 01:45:00 96 /min [facility] Body temperature 2024-04-28 01:24:00 37.22 La [facility] Body height 2024-04-28 01:24:00 165.1 cm [facility] Body weight 2024-04-28 01:24:00 87.862 kg [facility] BMI 2024-04-28 01:24:00 32.23 kg/m2 [facility] Systolic blood pressure 2021-09-19 15:00:00 138 mm[Hg] [facility] Diastolic blood pressure 2021-09-19 15:00:00 90 mm[Hg] [facility] Heart rate 2021-09-19 15:00:00 64 /min [facility] Respiratory rate 2021-09-19 15:00:00 18 /min [facility] Oxygen saturation in Arterial blood by Pulse oximetry 2021-09-19 15:00:00 97 /min [facility] Body temperature 2021-09-19 14:12:00 36.5 La [facility] Body height 2021-09-19 14:12:00 165.1 cm [facility] Body weight 2021-09-19 14:12:00 95.255 kg [facility] BMI 2021-09-19 14:12:00 34.95 kg/m2 [facility] BP Systolic 2024-07-16 11:20:00 157 mm[Hg] Step hen [facility] [place] BP Diastolic 2024-07-16 11:20:00 97 mm[Hg] Anthony phen F Pierce Weight Measured 2024-07-16 11:20:00 179.00 pounds Param F Pierce Height Measured 2024-07-16 11:20:00 65.00 inches Param F Pierce Body Temperature 2024-07-16 11:20:00 97.90 degrees Param F Pierce Heart Rate 2024-07-16 11:20:00 94.00 /min Fátima en F Pierce Respiratory Rate 2024-07-16 11:20:00 16.00 /min Param F Pierce BP Systolic 2024-04-22 15:43:00 147 mm[Hg] Step hen F Pierce BP Diastolic 2024-04-22 15:43:00 98 mm[Hg] Anthony phen F Pierce Weight Measured 2024-04-22 15:43:00 189.40 pounds Param F Pierce Height Measured 2024-04-22 15:43:00 65.00 inches Param F Pierce Body Temperature 2024-04-22 15:43:00 98.70 degrees Param F Pierce Heart Rate 2024-04-22 15:43:00 91.00 /min Fátima en F Pierce Respiratory Rate 2024-04-22 15:43:00 16.00 /min Param F Pierce BP Systolic 2023-12-10 17:23:00 147 mm[Hg] Step hen F Pierce BP Diastolic 2023-12-10 17:23:00 101 mm[Hg] Anthony phen F Pierce Weight Measured 2023-12-10 17:23:00 205.60 pounds Param F Pierce Height Measured 2023-12-10 17:23:00 65.00 inches Param F Pierce Body Temperature 2023-12-10 17:23:00 98.20 degrees Param F Pierce Heart Rate 2023-12-10 17:23:00 88.00 /min Fátima en F Pierce Respiratory Rate 2023-12-10 17:23:00 18.00 /min Param F Pierce BP Systolic 2023-08-21 13:43:00 Step hen F Pierce BP Diastolic 2023-08-21 13:43:00 Anthony phen F Pierce Weight Measured 2023-08-21 13:43:00 Param F Pierce Height Measured 2023-08-21 13:43:00 Param F Pierce Body Temperature 2023-08-21 13:43:00 Param F Pierce Heart Rate 2023-08-21 13:43:00 Fátima en F Pierce Respiratory Rate 2023-08-21 13:43:00 Param F Pierce BP Systolic 2023-07-11 15:41:00 143 mm[Hg] Step hen F Pierce BP Diastolic 2023-07-11 15:41:00 95 mm[Hg] Anthony phen F Pierce Weight Measured 2023-07-11 15:41:00 224.60 pounds Param F Pierce Height Measured 2023-07-11 15:41:00 65.00 inches Param F Pierce Body Temperature 2023-07-11 15:41:00 98.40 degrees Param F Pierce Heart Rate 2023-07-11 15:41:00 102.00 /min Step hen F Pierce Respiratory Rate 2023-07-11 15:41:00 Param F Pierce BP Systolic 2023-07-03 08:30:00 126 mm[Hg] Step hen F Pierce BP Diastolic 2023-07-03 08:30:00 70 mm[Hg] Anthony phen F Pierce Weight Measured 2023-07-03 08:30:00 222.20 pounds Param F Pierce Height Measured 2023-07-03 08:30:00 65.00 inches Param F Pierce Body Temperature 2023-07-03 08:30:00 98.30 degrees Param F Pierce Heart Rate 2023-07-03 08:30:00 89.00 /min Fátima en F Pierce Respiratory Rate 2023-07-03 08:30:00 Param F Pierce BP Systolic 2023-06-11 08:36:00 148 mm[Hg] Step hen F Pierce BP Diastolic 2023-06-11 08:36:00 86 mm[Hg] Anthony phen F Pierce Weight Measured 2023-06-11 08:36:00 230.60 pounds Param F Pierce Height Measured 2023-06-11 08:36:00 65.00 inches Param F Pierce Body Temperature 2023-06-11 08:36:00 98.20 degrees Param F Pierce Heart Rate 2023-06-11 08:36:00 69.00 /min Fátima en F Pierce Respiratory Rate 2023-06-11 08:36:00 18.00 /min Param F Pierce BP Systolic 2023-05-10 15:45:00 179 mm[Hg] Step hen F Pierce BP Diastolic 2023-05-10 15:45:00 108 mm[Hg] Anthony phen F Pierce Weight Measured 2023-05-10 15:45:00 236.80 pounds Param F Pierce Height Measured 2023-05-10 15:45:00 65.00 inches Param F Pierce Body Temperature 2023-05-10 15:45:00 98.20 degrees Param F Pierce Heart Rate 2023-05-10 15:45:00 79.00 /min Fátima en F Pierce Respiratory Rate 2023-05-10 15:45:00 18.00 /min Param F Pierce BP Systolic 2023-05-10 15:13:00 179 mm[Hg] Step hen F Pierce BP Diastolic 2023-05-10 15:13:00 108 mm[Hg] Anthony phen F Pierce Weight Measured 2023-05-10 15:13:00 236.80 pounds Param F Pierce Height Measured 2023-05-10 15:13:00 65.00 inches Param F Pierce Body Temperature 2023-05-10 15:13:00 98.30 degrees Param F Pierce Heart Rate 2023-05-10 15:13:00 79.00 /min Fátima en Gibran Pelayo Respiratory Rate 2023-05-10 15:13:00 18.00 /min Param Pelayo BP Systolic 2023-04-27 15:16:00 162 mm[Hg] Omero Pelayo BP Diastolic 2023-04-27 15:16:00 93 mm[Hg] Anthony Pelayo Weight Measured 2023-04-27 15:16:00 234.80 pounds Param Pelayo Height Measured 2023-04-27 15:16:00 65.00 inches Param Pelayo Body Temperature 2023-04-27 15:16:00 98.10 degrees Param Pelayo Heart Rate 2023-04-27 15:16:00 87.00 /min Fátima en Gibran Pelayo Respiratory Rate 2023-04-27 15:16:00 18.00 /min Param Pelayo Procedures Procedure Date / Time Performed Performing Clinicia n Source XR CHEST 1 VW 2021-09-19 14:31:02 Singer [facility] MAGNESIUM 2021-09-19 14:20:00 Singer [facility] TROPONIN I 2021-09-19 14:20:00 Singer [facility] COMP. METABOLIC PANEL (08934) 2021-09-19 14:20:00 Singer [facility] CBC WITH DIFF 2021-09-19 14:20:00 Singer [facility] N-TERMINAL PRO-BNP 2021-09-19 14:20:00 Singer [facility] NOTICE OF PRIVACY PRACTICES 2021-09-19 14:07:09 Doctor Unassigned, Gaffney [facility] CONSENT/REFUSAL FOR DIAGNOSIS AND TREATMENT 2021-09-19 14:04:33 Doctor Unassigned, Gaffney [facility] Encounters Start Date/Time End Date/Time Encounter Type Admission Type Attending Clinicians Care Facility Care Department Encounter ID Source 2024-01-04 20:41:41 Emergency HFD HFD [id number] [facility] ent 2022-11-27 09:29:11 Outpatient [facility] [id number] [facility] 2024-07-16 11:12:25 2024-07-16 11:12:25 Outpatient SFA SFA [id number] Param Pelayo 2024-07-16 00:00:00 2024-07-16 00:00:00 Outpatient Visit SFA [id number] Param Pelayo 2024-05-07 00:00:00 2024-05-07 10:00:01 Letter (Out) Campaigns, Generic Provider Campaigns, Generic Provider [facility] [id number] [id number] [facility] 2024-04-27 19:29:00 2024-04-27 20:13:00 Emergency X JAYCEE ORTEZ [facility] [id number] [facility] 2024-04-27 19:29:00 2024-04-27 20:13:00 Emergency Jaycee Ortez [facility] [id number] [id number] [id number] [facility] 2024-04-22 00:00:00 2024-04-22 00:00:00 Outpatient Visit SFA [id number] Param Pelayo 2023-12-10 17:14:27 2023-12-10 17:14:27 Outpatient SFA SFA [id number] Param Pelayo 2023-10-05 12:47:00 2023-10-05 15:56:00 Emergency E CORTES OROZCOSE [facility] [id number] 01 [facility] 2023-09-10 10:56:39 2023-09-10 10:56:39 Outpatient SFA SFA [id number] Param Pelayo 2023-08-21 13:39:19 2023-08-21 13:39:19 Outpatient SFA SFA [id number] Param Pelayo 2023-07-23 08:03:25 2023-07-23 08:03:25 Outpatient SFA SFA [id number] Param Pelayo 2023-07-11 15:34:57 2023-07-11 15:34:57 Outpatient SFA SFA [id number] Param Pelayo 2023-07-10 16:38:03 2023-07-10 16:38:03 Outpatient SFA SFA [id number] Param Pelayo 2023-07-03 08:24:12 2023-07-03 08:24:12 Outpatient SFA SFA [id number] Param Pelayo 2023-06-26 14:59:09 2023-06-26 14:59:09 Outpatient SFA SFA [id number] Param Pelayo 2023-06-11 08:28:06 2023-06-11 08:28:06 Outpatient SFA SFA [id number] Param Pelayo 2023-05-24 08:00:00 2023-05-24 08:00:00 Outpatient TERRY MAURICE [facility] [id number] [facility] 2023-05-10 15:07:11 2023-05-10 15:07:11 Outpatient SFA SFA [id number] Param Pelayo 2023-04-27 15:06:27 2023-04-27 15:06:27 Outpatient SFA SFA [id number] Param Pelayo 2023-04-04 08:41:32 2023-04-04 08:41:32 Outpatient SFA SFA [id number] Param Pelayo 2023-03-01 17:03:31 2023-03-01 17:03:31 Outpatient SFA SFA [id number] Param Pelayo 2023-02-19 15:40:18 2023-02-19 15:40:18 Outpatient SFA SFA [id number] Param Pelayo 2023-02-13 10:07:24 2023-02-13 10:07:24 Outpatient SFA SFA [id number] Param Pelayo 2023-02-05 14:22:43 2023-02-05 14:22:43 Outpatient SFA [facility] [id number] Param Pelayo 2023-01-12 10:39:09 2023-01-12 10:39:09 Outpatient SFA [facility] [id number] Param Pelayo 2023-01-04 16:27:56 2023-01-04 16:27:56 Outpatient SFA [facility] [id number] Param Pelayo 2022-12-29 13:14:14 2022-12-29 13:14:14 Outpatient SFA SFA [id number] Param Pelayo 2022-12-07 16:27:59 2022-12-07 16:27:59 Outpatient SFA [place] [id number] Param Pelayo 2022-12-05 09:43:47 2022-12-05 09:43:47 Outpatient SFA [facility] [id number] Param Pelayo 2022-10-12 16:47:27 2022-10-12 16:47:27 Outpatient SFA [place] [id number] Param Leary Pierce 2022-04-24 14:23:45 2022-04-24 14:23:45 Outpatient [place] [id number] Param Pelayo 2022-04-21 14:19:49 2022-04-21 14:19:49 Outpatient [facility] [id number] Param Pelayo 2021-09-19 09:13:00 2021-09-19 10:16:00 Emergency X ADAN SIMMONS ERT [id number] [facility] 2021-09-19 09:13:00 2021-09-19 10:16:00 Emergency Adan Simmons [facility] 1..840.114 [id number] [id number] [facility] 2021-09-19 00:00:00 2021-09-19 00:00:00 Orders Only Doctor Unassigned, Gaffney [facility] 1..840.114 350.1.13.10 [id number] [facility] 2020-04-26 14:20:00 2020-04-26 14:20:00 Outpatient THOM MAIN [facility] [id number] [facility] 2020-03-29 17:21:00 2020-03-29 17:21:00 Emergency X [facility] ERT [id number] [facility] 2010-01-19 00:00:00 2010-01-19 09:28:07 Outpatient [facility] [id number] [facility] Results Test Description Test Time Test Comments Results Result Co mments Source Param Leary AustinBV/VAGINITIS PANEL DNA [id number] 00:00:00* Test Item Value Reference Range Interpretation Comme nts TRICHOMONAS: (test code = 6568-0) NOT DETECTED GARDNERELLA: (test code = 6410-5) DETECTED CIARA: (test code = 43260-8) DETECTED Param Leary AustinCHLAMYDIA/N. GONORRHOEAE RNA, [id number] 00:00:00* Test Item Value Reference Range Interpretation Comme nts CHLAMYDIA TRACHOMATIS RNA, T MA, UROGENITAL (test code = 60560-6) NOT DETECTED NEISSERIA GONORRHOEAE RNA, T MA, UROGENITAL (test code = 42301-5) NOT DETECTED Param Leary AustinBV/VAGINITIS PANEL DNA [id number] 00:00:00* Test Item Value Reference Range Interpretation Comme nts TRICHOMONAS: (test code = 6568-0) NOT DETECTED GARDNERELLA: (test code = 6410-5) DETECTED CIARA: (test code = 01516-2) DETECTED Param PelayoPAP TEST, THINPREP, [id number] 00:00:00* Test Item Value Reference Range Interpretation Comme nts SOURCE: (test code = 8001) Cervical/Endocervical SLIDES: (test code = 8011) 1 LMP: (test code = 8021) 06/18/2023 SPECIMEN ADEQUACY: (test code = 35467) (NOTE) INTERPRETATION: (test code = 45494) NILM/NO EPITH. ABNORMALITY;SEE BELOW OTHER COMMENTS: (test code = 8081) (NOTE) LOCAL CITY DRIVER: (test code = 8101) IVETTE Patel(ASCP) QC TECHNOLOGIST: (test code = 8111) IVETTE ESCOBEDO(ASCP) LOCATION: (test code = 55238) (NOTE) CPT: (test code = 8140) (NOTE) Param Leary PiercePAP TEST, THINPREP, [id number] 00:00:00* Test Item Value Reference Range Interpretation Comme nts SOURCE: (test code = 8001) Cervical/Endocervical SLIDES: (test code = 8011) 1 LMP: (test code = 8021) 06/18/2023 SPECIMEN ADEQUACY: (test code = 62598) (NOTE) INTERPRETATION: (test code = 48166) NILM/NO EPITH. ABNORMALITY;SEE BELOW OTHER COMMENTS: (test code = 8081) (NOTE) LOCAL CITY DRIVER: (test code = 8101) IVETTE Patel(ASCP) QC TECHNOLOGIST: (test code = 8111) IVETTE ESCOBEDO(ASCP) LOCATION: (test code = 04265) (NOTE) CPT: (test code = 8140) (NOTE) Param Leary AustinHEPATITIS A IgM [REFLEX]2023-07-04 00:00:00* Test Item Value Reference Range Interpretation Comme nts HEPATITIS A IgM (test code = 2728) NON-REACTIVE Param Leary AustinCT/NG, TMA, [id number] 00:00:00* Test Item Value Reference Range Interpretation Comme nts CHLAMYDIA, NAAT, THINPREP (t est code = 20592) POSITIVE GONORRHEA, NAAT, THINPREP (t est code = 92993) NEGATIVE PDFE (test code = PDFReport) PDF Param Leary AustinRPR REFLEX TO T. PALLIDUM - [id number] 00:00:00* Test Item Value Reference Range Interpretation Comme nts RPR (test code = 67394) NON-REACTIVE RPR TITER (test code = 3500) NOT INDIC. TITER Param Leary AustinHEPATITIS PROFILE (A,B,C)2023-07-04 00:00:00* Test Item Value Reference Range Interpretation Comme nts HEPATITIS A TOTAL AB (test c ode = 2725) REACTIVE HEPATITIS B SURF AG (test co de = 2739) NON-REACTIVE HEP B CORE TOTAL AB (test co de = 2729) NON-REACTIVE HEPATITIS B SURFACE AB (test code = 2737) REACTIVE HEPATITIS C ANTIBODY (test c ode = 4675) NON-REACTIVE INTERPRETATION HEPATITIS A: (test code = 2552) (NOTE) INTERPRETATION HEPATITIS B: (test code = 08661) (NOTE) INTERPRETATION HEPATITIS C: (test code = 64235) (NOTE) Param Leary AustinHPV HIGH RISK WITH GENOTYPE, [id number] 00:00:00* Test Item Value Reference Range Interpretation Comme nts HPV HIGH RISK INTERP (test c ode = 70664) POSITIVE HPV 16 (test code = 14594) NEGATIVE HPV 18 (test code = 21361) NEGATIVE HPV, HR, OTHER GENOTYPES (te st code = 10085) POSITIVE Param PelayoHEPATITIS A IgM [REFLEX]2023-07-04 00:00:00* Test Item Value Reference Range Interpretation Comme nts HEPATITIS A IgM (test code = 2728) NON-REACTIVE Param Leary AustinCT/NG, TMA, [id number] 00:00:00* Test Item Value Reference Range Interpretation Comme nts CHLAMYDIA, NAAT, THINPREP (t est code = 28611) POSITIVE GONORRHEA, NAAT, THINPREP (t est code = 95766) NEGATIVE PDFE (test code = PDFReport) PDF Param Leary AustinRPR REFLEX TO T. PALLIDUM - [id number] 00:00:00* Test Item Value Reference Range Interpretation Comme nts RPR (test code = 23474) NON-REACTIVE RPR TITER (test code = 3500) NOT INDIC. TITER Param Leary AustinHEPATITIS PROFILE (A,B,C)2023-07-04 00:00:00* Test Item Value Reference Range Interpretation Comme nts HEPATITIS A TOTAL AB (test c ode = 2725) REACTIVE HEPATITIS B SURF AG (test co de = 2739) NON-REACTIVE HEP B CORE TOTAL AB (test co de = 2729) NON-REACTIVE HEPATITIS B SURFACE AB (test code = 2737) REACTIVE HEPATITIS C ANTIBODY (test c ode = 4675) NON-REACTIVE INTERPRETATION HEPATITIS A: (test code = 2552) (NOTE) INTERPRETATION HEPATITIS B: (test code = 18741) (NOTE) INTERPRETATION HEPATITIS C: (test code = 65949) (NOTE) Param PelayoHPV HIGH RISK WITH GENOTYPE, [id number] 00:00:00* Test Item Value Reference Range Interpretation Comme nts HPV HIGH RISK INTERP (test c ode = 50715) POSITIVE HPV 16 (test code = 69043) NEGATIVE HPV 18 (test code = 06217) NEGATIVE HPV, HR, OTHER GENOTYPES (te st code = 65788) POSITIVE Param PelayoTSH, THIRD [id number] 00:00:00* Test Item Value Reference Range Interpretation Comme nts TSH, THIRD GENERATION (test code = 2821) 0.720 UIU/ML Param PelayoCOMPREHENSIVE METABOLIC [id number] 00:00:00* Test Item Value Reference Range Interpretation Comme nts GLUCOSE (test code = 2217) 89 MG/DL BUN (test code = 2208) 15 MG/DL CREATININE (test code = 2214) 0.85 MG/DL eGFR (2020 CKD-EPI) (test co de = 79687) 93 ML/MIN/1.73 CALC BUN/CREAT (test code = 2235) 18 RATIO SODIUM (test code = 2231) 139 MEQ/L POTASSIUM (test code = 2228) 3.9 MEQ/L CHLORIDE (test code = 2215) 104 MEQ/L CARBON DIOXIDE (test code = 2206) 22 MEQ/L CALCIUM (test code = 2209) 9.0 MG/DL PROTEIN, TOTAL (test code = 2229) 7.6 G/DL ALBUMIN (test code = 2201) 4.4 G/DL CALC GLOBULIN (test code = 2240) 3.2 G/DL CALC A/G RATIO (test code = 2234) 1.4 RATIO BILIRUBIN, TOTAL (test code = 2207) <0.2 MG/DL ALKALINE PHOSPHATASE (test code = 2204) 74 U/L AST (test code = 2218) 19 U/L ALT (test code = 2219) 16 U/L Param PelayoHEMOGLOBIN [id number] 00:00:00* Test Item Value Reference Range Interpretation Comme nts HEMOGLOBIN A1c (test code = 72210) 5.7 % Param PelayoLIPID [id number] 00:00:00* Test Item Value Reference Range Interpretation Comme nts CHOLESTEROL (test code = 2210) 213 MG/DL TRIGLYCERIDES (test code = 2232) 182 MG/DL HDL CHOLESTEROL (test code = 2220) 39 MG/DL CALC LDL CHOL (test code = 2237) 142 MG/DL RISK RATIO LDL/HDL (test cod e = 2238) 3.64 RATIO Param PelayoTSH, THIRD [id number] 00:00:00* Test Item Value Reference Range Interpretation Comme nts TSH, THIRD GENERATION (test code = 2821) 0.720 UIU/ML Param PelayoCOMPREHENSIVE METABOLIC [id number] 00:00:00* Test Item Value Reference Range Interpretation Comme nts GLUCOSE (test code = 2217) 89 MG/DL BUN (test code = 2208) 15 MG/DL CREATININE (test code = 2214) 0.85 MG/DL eGFR (2020 CKD-EPI) (test co de = 84009) 93 ML/MIN/1.73 CALC BUN/CREAT (test code = 2235) 18 RATIO SODIUM (test code = 2231) 139 MEQ/L POTASSIUM (test code = 2228) 3.9 MEQ/L CHLORIDE (test code = 2215) 104 MEQ/L CARBON DIOXIDE (test code = 2206) 22 MEQ/L CALCIUM (test code = 2209) 9.0 MG/DL PROTEIN, TOTAL (test code = 2229) 7.6 G/DL ALBUMIN (test code = 2201) 4.4 G/DL CALC GLOBULIN (test code = 2240) 3.2 G/DL CALC A/G RATIO (test code = 2234) 1.4 RATIO BILIRUBIN, TOTAL (test code = 2207) <0.2 MG/DL ALKALINE PHOSPHATASE (test code = 2204) 74 U/L AST (test code = 2218) 19 U/L ALT (test code = 2219) 16 U/L Param PelayoHEMOGLOBIN [id number] 00:00:00* Test Item Value Reference Range Interpretation Comme fanta HEMOGLOBIN A1c (test code = 74663) 5.7 % Param PelayoLIPID [id number] 00:00:00* Test Item Value Reference Range Interpretation Comme nts CHOLESTEROL (test code = 2210) 213 MG/DL TRIGLYCERIDES (test code = 2232) 182 MG/DL HDL CHOLESTEROL (test code = 2220) 39 MG/DL CALC LDL CHOL (test code = 2237) 142 MG/DL RISK RATIO LDL/HDL (test cod e = 2238) 3.64 RATIO Param PelayoCOMPREHENSIVE METABOLIC PANEL [ADDED]2022-04-22 00:00:00* Test Item Value Reference Range Interpretation Comme nts GLUCOSE (test code = 2217) 111 MG/DL BUN (test code = 2208) 12 MG/DL CREATININE (test code = 2214) 0.89 MG/DL eGFR (2020 CKD-EPI) (test co de = 53427) 88 ML/MIN/1.73 CALC BUN/CREAT (test code = 2235) 13 RATIO SODIUM (test code = 2231) 141 MEQ/L POTASSIUM (test code = 2228) 3.9 MEQ/L CHLORIDE (test code = 2215) 106 MEQ/L CARBON DIOXIDE (test code = 2206) 25 MEQ/L CALCIUM (test code = 2209) 9.5 MG/DL PROTEIN, TOTAL (test code = 2229) 7.5 G/DL ALBUMIN (test code = 2201) 4.3 G/DL CALC GLOBULIN (test code = 2240) 3.2 G/DL CALC A/G RATIO (test code = 2234) 1.3 RATIO BILIRUBIN, TOTAL (test code = 2207) 0.2 MG/DL ALKALINE PHOSPHATASE (test code = 2204) 58 U/L AST (test code = 2218) 17 U/L ALT (test code = 2219) 14 U/L Param PelayoTSH + FREE T4 PROFILE [ADDED]2022-04-22 00:00:00* Test Item Value Reference Range Interpretation Comme nts TSH, THIRD GENERATION (test code = 2821) 0.364 UIU/ML FREE T4 (THYROXINE) (test co de = 2823) 1.35 NG/DL Param PelayoCBC W/AUTO DIFF WITH PLATELETS [ADDED]2022-04-22 00:00:00* Test Item Value Reference Range Interpretation Comme nts WBC (test code = 1001) 8.2 K/UL RBC (test code = 1002) 4.62 M/UL HEMOGLOBIN (test code = 1003) 11.3 G/DL HEMATOCRIT (test code = 1004) 35.4 % MCV (test code = 1005) 76.6 fL MCH (test code = 1006) 24.5 PG MCHC (test code = 1007) 31.9 G/DL RDW (test code = 1038) 16.4 % NEUTROPHILS (test code = 1008) 64.9 % LYMPHOCYTES (test code = 1010) 25.8 % MONOCYTES (test code = 1011) 6.8 % EOSINOPHILS (test code = 1012) 1.7 % BASOPHILS (test code = 1013) 0.6 % IMMATURE GRANULOCYTES (test code = 1036) 0.2 % NUCLEATED RBCS (test code = 1065) 0.0 /100WBC'S PLATELET COUNT (test code = 1015) 353 K/UL ABSOLUTE NEUTROPHILS (test c ode = 1066) 5.33 K/UL ABSOLUTE LYMPHOCYTES (test c ode = 1067) 2.12 K/UL ABSOLUTE MONOCYTES (test cod e = 1068) 0.56 K/UL ABSOLUTE EOSINOPHILS (test c ode = 1040) 0.14 K/UL ABSOLUTE BASOPHILS (test cod e = 1069) 0.05 K/UL ABS IMMATURE GRANULOCYTES (t est code = 1020) 0.02 K/UL ABS NUCLEATED RBCS (test cod e = 61347) 0.00 K/UL Param Gibran PierceHEMOGLOBIN A1c [ADDED]2022-04-22 00:00:00* Test Item Value Reference Range Interpretation Comme nts HEMOGLOBIN A1c (test code = 21102) 5.8 % Param Leary PierceLIPID PANEL [ADDED]2022-04-22 00:00:00* Test Item Value Reference Range Interpretation Comme nts CHOLESTEROL (test code = 2210) 203 MG/DL TRIGLYCERIDES (test code = 2232) 169 MG/DL HDL CHOLESTEROL (test code = 2220) 36 MG/DL CALC LDL CHOL (test code = 2237) 136 MG/DL RISK RATIO LDL/HDL (test cod e = 2238) 3.78 RATIO Param Leary PierceCOMPREHENSIVE METABOLIC PANEL [ADDED]2022-04-22 00:00:00* Test Item Value Reference Range Interpretation Comme nts GLUCOSE (test code = 2217) 111 MG/DL BUN (test code = 2208) 12 MG/DL CREATININE (test code = 2214) 0.89 MG/DL eGFR (2020 CKD-EPI) (test co de = 41158) 88 ML/MIN/1.73 CALC BUN/CREAT (test code = 2235) 13 RATIO SODIUM (test code = 2231) 141 MEQ/L POTASSIUM (test code = 2228) 3.9 MEQ/L CHLORIDE (test code = 2215) 106 MEQ/L CARBON DIOXIDE (test code = 2206) 25 MEQ/L CALCIUM (test code = 2209) 9.5 MG/DL PROTEIN, TOTAL (test code = 2229) 7.5 G/DL ALBUMIN (test code = 2201) 4.3 G/DL CALC GLOBULIN (test code = 2240) 3.2 G/DL CALC A/G RATIO (test code = 2234) 1.3 RATIO BILIRUBIN, TOTAL (test code = 220) 0.2 MG/DL ALKALINE PHOSPHATASE (test code = 2203) 58 U/L AST (test code = 2218) 17 U/L ALT (test code = 221) 14 U/L Param PelayoTSH + FREE T4 PROFILE [ADDED]2022-04-22 00:00:00* Test Item Value Reference Range Interpretation Comme nts TSH, THIRD GENERATION (test code = 2821) 0.364 UIU/ML FREE T4 (THYROXINE) (test co de = 2823) 1.35 NG/DL Param PelayoCBC W/AUTO DIFF WITH PLATELETS [ADDED]2022-04-22 00:00:00* Test Item Value Reference Range Interpretation Comme nts WBC (test code = 1001) 8.2 K/UL RBC (test code = 1002) 4.62 M/UL HEMOGLOBIN (test code = 1003) 11.3 G/DL HEMATOCRIT (test code = 1004) 35.4 % MCV (test code = 1005) 76.6 fL MCH (test code = 1006) 24.5 PG MCHC (test code = 1007) 31.9 G/DL RDW (test code = 1038) 16.4 % NEUTROPHILS (test code = 1008) 64.9 % LYMPHOCYTES (test code = 1010) 25.8 % MONOCYTES (test code = 1011) 6.8 % EOSINOPHILS (test code = 1012) 1.7 % BASOPHILS (test code = 1013) 0.6 % IMMATURE GRANULOCYTES (test code = 1036) 0.2 % NUCLEATED RBCS (test code = 1065) 0.0 /100WBC'S PLATELET COUNT (test code = 1015) 353 K/UL ABSOLUTE NEUTROPHILS (test c ode = 1066) 5.33 K/UL ABSOLUTE LYMPHOCYTES (test c ode = 1067) 2.12 K/UL ABSOLUTE MONOCYTES (test cod e = 1068) 0.56 K/UL ABSOLUTE EOSINOPHILS (test c ode = 1040) 0.14 K/UL ABSOLUTE BASOPHILS (test cod e = 1069) 0.05 K/UL ABS IMMATURE GRANULOCYTES (t est code = 1020) 0.02 K/UL ABS NUCLEATED RBCS (test cod e = 43126) 0.00 K/UL Param PelayoHEMOGLOBIN A1c [ADDED]2022-04-22 00:00:00* Test Item Value Reference Range Interpretation Comme nts HEMOGLOBIN A1c (test code = 18044) 5.8 % Param PelayoLIPID PANEL [ADDED]2022-04-22 00:00:00* Test Item Value Reference Range Interpretation Comme nts CHOLESTEROL (test code = 2210) 203 MG/DL TRIGLYCERIDES (test code = 2232) 169 MG/DL HDL CHOLESTEROL (test code = 2220) 36 MG/DL CALC LDL CHOL (test code = 2237) 136 MG/DL RISK RATIO LDL/HDL (test cod e = 2238) 3.78 RATIO Param PelayoTROPONIN [id number] 14:55:34* Test Item Value Reference Range Interpretation Comments TROPONIN I (test code = 4917486700) 0.003 ng/mL See_Comment [Automated message] The system which generated this result transmitted reference range: <=0.034. The reference range was not used to interpret this result as normal/abnormal. MARILYN (test code = MARILYN) Reference (Normal) Range (defined by the 99th percentile reference limit): <= 0.034 ng/mL Note: Cardiac troponin begins to rise 3-4 hours after the onset of ischemia. Repeat in 4-6 hours if the sample was drawn within 3-4 hours of the onset of the symptom and found normal. Diagnosis of myocardial injury is made with acute changes in cTn concentrations with at least one serial sample above the 99th percentile upper reference limit (URL), taken together with the patient's clinical presentation. Biotin has been reported to cause a negative bias, interpret results relative to patient's use of biotin. Lab Interpretation (test code = 39376-0) [facility] [id number] 14:52:13* Test Item Value Reference Range Interpretation Comme nts NT-proBNP (test code = 0885369002) 65 pg/mL See_Comment [Automated message] The system which generated this result transmitted reference range: <=125. The reference range was not used to interpret this result as normal/abnormal. MARILYN (test code = MARILYN) Biotin has been reported to cause a negative bias, interpret results relative to patient's use of biotin. Lab Interpretation (test code = 77909-1) [facility]2022-[facility] 14:44:10* Test Item Value Reference Range Interpretation Comme nts MAGNESIUM (test code = 9209526139) 1.6 mg/dL 1.7-2.4 L Lab Interpretation (test cod e = 93604-3) Abnormal [facility] CenterCOMP[facility] METABOLIC PANEL (82905)2021-09-19 14:43:50* Test Item Value Reference Range Interpretation Comme nts NA (test code = 3176026557) 138 mmol/L 135-145 K (test code = 0733332420) 3.6 mmol/L 3.5-5.0 CL (test code = 6863402605) 102 mmol/L 98-108 CO2 TOTAL (test code = 9500307828) 24 mmol/L 23-31 AGAP (test code = 9320176636) 2-16 BUN (test code = 4841256754) 12 mg/dL 7-23 GLUCOSE (test code = 2268876419) 96 mg/dL 70-110 CREATININE (test code = 2153486286) 0.80 mg/dL 0.50-1.04 TOTAL BILI (test code = 1763061500) 0.7 mg/dL 0.1-1.1 CALCIUM (test code = 2489554381) 9.1 mg/dL 8.6-10.6 T PROTEIN (test code = 4951499566) 8.3 g/dL 6.3-8.2 H ALBUMIN (test code = 3632821269) 4.7 g/dL 3.5-5.0 ALK PHOS (test code = 3964221775) 64 U/L 34-122 ALTv (test code = 1742-6) 20 U/L 5-35 AST(SGOT) (test code = 5191960963) 26 U/L 13-40 eGFR (test code = 0402467915) mL/min/1.73m2 MARILYN (test code = MARILYN) Association [...] imaging tests). Lab Interpretation (test code = 86670-7) Abnormal [facility] WITH [id number] 14:32:10* Test Item Value Reference Range Interpretation Comme nts WBC (test code = 6690-2) See_Comment [English[employer]] The system which generated this result transmitted reference range: 4.30 - 11.10 10*3/?L. The reference range was not used to interpret this result as normal/abnormal. RBC (test code = 789-8) See_Comment [[employer]] The system which generated this result transmitted [...] g/dL 31.6-35.1 L RDW-SD (test code = 25659-9) 43.1 fL 39.0-49.9 RDW-CV (test code = 788-0) 15.7 % 12.0-15.5 H PLT (test code = 777-3) See_Comment [Automated messa ge] The system which generated this result transmitted reference range: 166 - 358 10*3/?L. The reference range was not used to interpret this result as normal/abnormal. MPV (test code = 75596-4) 10.0 fL 9.5-12.9 NRBC/100 WBC (test code = 8483307082) See_Comment [Automated [employer] ssage] The system which generated this result transmitted reference range: 0.0 - 10.0 /100 WBCs. The reference range was not used to interpret this result as normal/abnormal. NRBC x10^3 (test code = 2684405162) <0.01 See_Comment [Automated messa ge] The system which generated this result transmitted reference range: 10*3/?L. The reference range was not used to interpret this result as normal/abnormal. GRAN MAT (NEUT) % (test code = 770-8) 62.9 % IMM GRAN % (test code = 1588504212) 0.30 % LYMPH % (test code = 736-9) 26.3 % MONO % (test code = 5905-5) 7.1 % EOS % (test code = 713-8) 2.7 % BASO % (test code = 706-2) 0.7 % GRAN MAT x10^3(ANC) (test code = 0726804189) 4.46 10*3/uL 1.88-7.09 IMM GRAN x10^3 (test code = 1873532228) <0.03 0.00-0.06 LYMPH x10^3 (test code = 731-0) 1.86 10*3/uL 1.32-3.29 MONO x10^3 (test code = 742-7) 0.50 10*3/uL 0.33-0.92 EOS x10^3 (test code = 711-2) 0.19 10*3/uL 0.03-0.39 BASO x10^3 (test code = 704-7) 0.05 10*3/uL 0.01-0.07 Lab Interpretation (test code = 80013-9) Abnormal [facility] CenterS[facility] ([facility]OVID-19), RT-PCR/[id number] 08:22:09* Test Item Value Reference Range Interpretation Comments SARS-CoV-2 INTERPRETATION (test code = 86352) NEGATIVE SEE NOTE SARS-CoV-2 R NA NOT [...] prevalence is high. SOURCE (test code = 05580) NOT SPECIFIED Note: Methodolog y is Asmita Javier Real-Time RT-PCR. The expected result or reference range is NEGATIVE (Not Detected). For more information regarding COVID-19 testing to include clinicalinformation, methodology detail, intended use, FDA authorization andrecommended fact sheets for patients or healthcare providers, see [employer] Announcement: SARS-CoV-2 (COVID-19) by NAAT at URL below (note,fact sheets are provided by method given in report:[email or web address] Alternatively, see downloadable PDF fact sheet at:[email or web address] UNLESS OTHERWISE INDICATED, ALL TESTING PERFORMED [facility] PATHOLOGY [employer], [facility]. [address] [place] [id number] AGENT BASED MODELER: CHARLIE GARCIA M.D. [place] NUMBER [id number] [facility] [place]. [id number] SARS-CoV-2 (COVID-19) by RT-PCR (HIGH RISK)2021-06-11 00:00:00* Test Item Value Reference Range Interpretation Comme nts SARS-CoV-2 INTERPRETATION (t est code = 08793) NEGATIVE SOURCE (test code = 09915) NOT SPECIFIED Param PelayoSARS-CoV-2 (COVID-19) by RT-PCR (HIGH RISK)2021-06-11 00:00:00* Test Item Value Reference Range Interpretation Comme nts SARS-CoV-2 INTERPRETATION (t est code = 59645) NEGATIVE SOURCE (test code = 14498) NOT SPECIFIED Param PelayoSARS-COV-2 (COVID19), NAAT [ADDED]2020-06-04 00:00:00* Test Item Value Reference Range Interpretation Comme nts SARS-CoV-2 INTERPRETATION (t est code = 82719) POSITIVE SOURCE (test code = 85797) NOT SPECIFIED Param PleayoSARS-COV-2 (COVID19), NAAT [ADDED]2020-06-04 00:00:00* Test Item Value Reference Range Interpretation Comme nts SARS-CoV-2 INTERPRETATION (t est code = 15745) POSITIVE SOURCE (test code = 97751) NOT SPECIFIED Param [id number] 00:00:00* Test Item Value Reference Range Interpretation Comme nts TSH, THIRD GENERATION (test code = 2821) 0.720 UIU/ML Param PelayoHEMOGLOBIN [id number] 00:00:00* Test Item Value Reference Range Interpretation Comme nts HEMOGLOBIN A1c (test code = 89047) 6.2 % Param PelayoLIPID [id number] 00:00:00* Test Item Value Reference Range Interpretation Comme nts CHOLESTEROL (test code = 2210) 185 MG/DL TRIGLYCERIDES (test code = 2232) 175 MG/DL HDL CHOLESTEROL (test code = 2220) 36 MG/DL CALC LDL CHOL (test code = 2237) 120 MG/DL RISK RATIO LDL/HDL (test cod e = 2238) 3.33 RATIO Param [id number] 00:00:00* Test Item Value Reference Range Interpretation Comme nts TSH, THIRD GENERATION (test code = 2821) 0.720 UIU/ML Param PelayoHEMOGLOBIN [id number] 00:00:00* Test Item Value Reference Range Interpretation Comme nts HEMOGLOBIN A1c (test code = 58777) 6.2 % Param PelayoLIPID [id number] 00:00:00* Test Item Value Reference Range Interpretation Comme nts CHOLESTEROL (test code = 2210) 185 MG/DL TRIGLYCERIDES (test code = 2232) 175 MG/DL HDL CHOLESTEROL (test code = 2220) 36 MG/DL CALC LDL CHOL (test code = 2237) 120 MG/DL RISK RATIO LDL/HDL (test cod e = 2238) 3.33 RATIO Param Pelayo Notes Date/Time Note Provider Source Param Leary. [facility]2024-12-08 20:05:02 Awake, alert oriented X4, respiratory even and unlabored,skin w/d color appropriate for race, pt encouraged to follow up with pcp and or return as needed. Pt given printed and verbal discharge instructions regarding sciatica of right side. Patient verbalized understanding and signature obtained, patient denies any other concerns. Prescriptions provided. Discussed NORCO 5 side affects and to avoid driving/operating machinery/or engaging in activities requiring alertness while taking. Advised to seek medical attention for new/prolonged/worsening of symptoms. Pt ambulated to the [facility] with steady gait. NISATION AND METHODS ANALYST Margie Ferrell [id number]42 Patient arrived ambulatory to ED c/o right leg pain that started a week ago. [facility]. Patient has lower back pain that shoots pain down right leg. Patient has been taking Ibu 800, robaxin, and steroid. No medications are working. Patient states from knee down is starting to go numb. Hx: HTN NISATION AND METHODS ANALYST Ashley [facility] [id number] 00:00:00 Param F. [facility]"
[2024-08-11 13:43] LABS: Specific Gravity 1.023 (1.005-1.030)
[2024-08-11 13:46] LABS: Specific Gravity 1.023 (1.005-1.030); Sqamous Epithelial <5 /HPF (None Seen); Transitional Epithelial <5 /HPF (None Seen); Urine Bacteria <20 /HPF (<20); Urine Bilirubin NEGATIVE (Negative); Urine Blood 1+ (Negative); Urine Clarity Extremely Turbid (Clear); Urine Color Yellow (Yellow); Urine Culture Reflex Order REFLEXED; Urine Glucose NEGATIVE (Negative); Urine Ketones NEGATIVE (Negative); Urine Microscopic Reflex YN ORDER UMIC; Urine Mucus 1+ /HPF (None Seen); Urine Nitrite NEGATIVE (Negative); Urine Protein 1+ (Negative); Urine RBC >50 /HPF (None Seen); Urine Urobilinogen Normal (Normal); Urine WBC >50 /HPF (<5)
[2024-08-11] MEDS ORDERED: CEFTRIAXONE 1000 MG/VIAL ONE (14:07)
--- NOTE | 2024-08-11 14:28 | ER ---
Nurse's Notes [facility] Name: Radha Boogie Age: 34 yrs Sex: Female : 1990 Arrival Date: 08/11/2024 Time: 13:01 Bed 12 Private MD: Diagnosis: UTI/ Urinary tract infection, site not specified Presentation: 08/11 13:22 Chief complaint: Patient states: pain with urination and blood in urine that began aa5 Sunday. Coronavirus screen: At this time, the client does not indicate any symptoms associated with coronavirus-19. Ebola Screen: Patient denies travel to an Ebola-affected area in the 21 days before illness onset. Initial Sepsis Screen: Does the patient meet any 2 criteria? No. Patient's initial sepsis screen is negative. Does the patient have a suspected source of infection? No. Patient's initial sepsis screen is negative. Risk Assessment: Do you want to hurt yourself or someone else? Patient reports no desire to harm self or others. Onset of symptoms was July 2024. 13:22 Acuity: JOSE RAUL 3 aa5 13:22 Method Of Arrival: Ambulatory aa5 Historical: - Allergies: 13:24 No Known Allergies; aa5 - PMHx: 13:24 Hypertensive disorder; aa5 - PSHx: 13:24 eye sx; as a child; aa5 - Immunization history:: Adult Immunizations unknown. - Infectious Disease History:: Denies. - Social history:: Smoking status: Patient reports the use of cigarette tobacco products. Screenin:13 [facility] ED Fall Risk Assessment (Adult) History of falling in the last 3 months, kc6 including since admission No falls in past 3 months (0 pts) Confusion or Disorientation No (0 pts) Intoxicated or Sedated No (0 pts) Impaired Gait No (0 pts) Mobility Assist Device Used No (0 pt) Altered Elimination No (0 pt) Score/Fall Risk Level 0 - 2 = Low Risk Oriented to surroundings, Maintained a safe environment, Educated pt \T\ family on fall prevention, incl call for assistance when getting out of bed. Abuse screen: Denies threats or abuse. Denies injuries from another. Nutritional screening: No deficits noted. Tuberculosis screening: No symptoms or risk factors identified. Assessment: 14:13 General: Appears in no apparent distress. comfortable, well groomed, well developed, kc6 Behavior is calm, cooperative, appropriate for age. Pain: Complains of pain in pelvis. Neuro: Level of Consciousness is awake, alert, obeys commands, Oriented to person, place, time, situation, Appropriate for age. Respiratory: Airway is patent Trachea midline Respiratory effort is even, unlabored, Respiratory pattern is regular, symmetrical. GI: No signs and/or symptoms were reported involving the gastrointestinal system. : Reports pain with urination. Derm: No signs and/or symptoms reported regarding the dermatologic system. Skin is intact, is healthy with good turgor, Skin is pink, warm \T\ dry. Vital Signs: 13:22 BP 174 / 121; Pulse 85; Resp 18 S; Temp 98.7(O); Pulse Ox 100% on R/A; Weight 78.02 kg aa5 (R); Height 5 ft. 4 in. (R); 14:13 BP 161 / 109; Pulse 85; Resp 16 S; Pulse Ox 99% on R/A; kc6 13:22 Body Mass Index 29.52 (78.02 kg, 162.56 cm) aa5 ED Course: 13:04 Patient arrived in ED. mr 13:06 Angel Benitez, SYSTEMS ENG-C [facility]. dr5 13:06 Audie Andino MD is Attending Physician. dr5 13:22 Arm band placed on. aa5 13:23 Triage completed. aa5 14:02 Skylar Arreguin, RN is Primary Nurse. kc6 14:13 Patient has correct armband on for positive identification. Bed in low position. Call kc6 light in reach. Side rails up X 1. Pulse ox on. NIBP on. Door closed. Noise minimized. Lights dimmed. Pillow given. Verbal reassurance given. 14:13 No provider procedures requiring assistance completed. Patient did not have IV access kc6 during this emergency room visit. Patient maintains SpO2 saturation greater than 95% on room air. Administered Medications: 14:12 Drug: Rocephin (cefTRIAXone) IM 1 grams IM once Route: IM; Site: right deltoid; kc6 14:40 Follow up: Response: No adverse reaction kc6 Medication: 14:41 VIS not applicable for this client. kc6 Outcome: 14:27 Discharge ordered by . dr5 14:40 Discharged to home ambulatory, kc6 14:40 Condition: good 14:40 Discharge instructions given to patient, Instructed on discharge instructions, follow up and referral plans. medication usage, safe sex practices, Demonstrated understanding of instructions, follow-up care, medications, Prescriptions given X 1, 14:41 Patient left the ED. kc6 Signatures: Sully Fortune, Reg Reg mr Mejia, Karely, RN RN aa5 Skylar Arreguin RN RN kc6 Angel Benitez, SYSTEMS ENG-C SYSTEMS ENG-[facility]5
--- NOTE | 2024-08-11 14:28 | EDPHYS ---
Physician Documentation [facility] Name: Radha Boogie Age: 34 yrs Sex: Female : 1990 Arrival Date: 08/11/2024 Time: 13:01 Bed 12 Private MD: ED Physician Audie Andino HPI: 08/11 13:32 This 34 yrs old Female presents to ER via Ambulatory with complaints of dr5 Urinary Problem. 13:32 Onset: The symptoms/episode began/occurred 5 day(s) ago. Patient is a 34-year-old dr5 female with history of hypertension coming in with urinary symptoms such as dysuria, malodorous, and hesitancy since last Sunday. Patient states that she is post be taking losartan but has not been taking it.. Historical: - Allergies: 13:24 No Known Allergies; aa5 - PMHx: 13:24 Hypertensive disorder; aa5 - PSHx: 13:24 eye sx; as a child; aa5 - Immunization history:: Adult Immunizations unknown. - Infectious Disease History:: Denies. - Social history:: Smoking status: Patient reports the use of cigarette tobacco products. ROS: 13:32 Constitutional: as per hpi dr5 Exam: 13:32 Constitutional: This is a well developed, well nourished patient who is awake, alert, dr5 and in no acute distress. Head/Face: Normocephalic, atraumatic. Eyes: Pupils equal round and reactive to light, extra-ocular motions intact. Lids and lashes normal. Conjunctiva and sclera are non-icteric and not injected. Cornea within normal limits. Periorbital areas with no swelling, redness, or edema. Chest/axilla: Normal chest wall appearance and motion. Nontender with no deformity. No lesions are appreciated. Cardiovascular: Regular rate and rhythm with a normal S1 and S2. Normal PMI, no JVD. No pulse deficits. Respiratory: Lungs have equal breath sounds bilaterally, clear to auscultation. No rales, rhonchi or wheezes noted. No increased work of breathing, no retractions or nasal flaring. Back: No spinal tenderness. No costovertebral tenderness. Full range of motion. Skin: Warm, dry with normal turgor. Normal color with no rashes, no lesions, and no evidence of cellulitis. Neuro: Awake and alert, GCS 15, oriented to person, place, time, and situation. Cranial nerves II-XII grossly intact. Motor strength 5/5 in all extremities. Sensory grossly intact. Cerebellar exam normal. Normal gait. Vital Signs: 13:22 BP 174 / 121; Pulse 85; Resp 18 S; Temp 98.7(O); Pulse Ox 100% on R/A; Weight 78.02 kg aa5 (R); Height 5 ft. 4 in. (R); 14:13 BP 161 / 109; Pulse 85; Resp 16 S; Pulse Ox 99% on R/A; kc6 13:22 Body Mass Index 29.52 (78.02 kg, 162.56 cm) aa5 MDM: 13:07 Medical Screening Exam initiated dr5 15:16 Differential diagnosis: viral Infection, bacterial infection, UTI. Data reviewed: vital dr5 signs, nurses notes. I considered the following discharge prescriptions or medication management in the emergency department Medications were administered in the Emergency Department. See MAR. Care significantly affected by the following chronic conditions: Hypertension. Care significantly affected by the following Social Determinants of Health: Poor access to healthcare and/or lack of insurance, Poor access to transportation, Problems related to employment. Counseling: I had a detailed discussion with the patient and/or guardian regarding the historical points, exam findings, and any diagnostic results supporting the discharge/admit diagnosis, the presence of at least one elevated blood pressure reading (>120/80) during this emergency department visit, lab results, the need for outpatient follow up, for definitive care, a family practitioner, to return to the emergency department if symptoms worsen or persist or if there are any questions or concerns that arise at home. Medication response: Rocephin - no reaction. ED course: Patient found to have urinary tract infection. Rocephin injection given in ER. Will start patient on Keflex twice daily tomorrow. Urine culture sent and we will change antibiotics as needed. All questions answered. Recommend increase hydration and alternate Tylenol Motrin as needed for pain and fever. Strict ER precautions. 08/11 13:22 Order name: Urinalysis w/ reflexes; Complete Time: 13:48 aa 08/11 13:22 Order name: Test, Urine; Complete Time: 13:44 [facility] 08/11 13:49 Order name: Urine Culture EDMS Administered Medications: 14:12 Drug: Rocephin (cefTRIAXone) IM 1 grams IM once Route: IM; Site: right deltoid; kc6 14:40 Follow up: Response: No adverse reaction kc6 Disposition Summary: 08/11/24 14:27 Discharge Ordered Notes: Location: Home dr5 Condition: Stable dr5 Diagnosis - UTI/ Urinary tract infection, site not specified dr5 Followup: dr5 - With: Emergency Department - When: As needed - Reason: Worsening of condition Followup: dr5 - With: Private Physician - When: 1 - 2 days - Reason: Recheck today's complaints, Continuance of care, Re-evaluation by your physician Discharge Instructions: - Discharge Summary Sheet dr5 - Urinary Tract Infection, Adult, [id number] dr5 Forms: - Work release form dr5 - Medication Reconciliation Form dr5 - Antibiotic Education dr5 - Patient Portal Instructions dr5 - Leadership Thank You Letter dr5 Prescriptions: - Cephalexin 500 mg Oral capsule - take 1 capsule ORAL route every 12 hours for 7 days; 14 capsule; Refills: 0, dr5 Product Selection Permitted Addendum: 08/13/2024 14:43 I was immediately available for consultation during this patient's visit. I did not e c2 personally see the patient or discuss the patient with the TASNEEM. . Signatures: Dispatcher [employer] Karely Porter RN RN aa5 Skylar Arreguin RN RN kc6 Audie Andino MD MD ec2 Angel Benitez, BIT GATHERER-C BIT GATHERER-Cdr5
[2024-08-11 15:01] VITALS: TEMP 98.7
[2024-08-11 15:03] VITALS: BP 161/109; O2SAT 99
== END 2024-08-11 14:41 | disposition home or self-care (01) ==
LOC: ER 13:01
DX: N39.0 Urinary tract infection, site not specified (principal)
CPT/HCPCS: 81001; 81025; 87077; 87086; 87088; 87186; 96372; 99284; J0696